=== PATIENT | male | born 1985 | race African-American/Black ===

== ENCOUNTER 2020-03-14 20:05 | Emergency (ER) | payer OTHER, SELFPAY ==
--- NOTE | 2020-03-14 20:56 | RAD ---
SINGLE VIEW OF THE CHEST: 03/14/20 COMPARISON: 08/26/19 HISTORY: Shortness of breath and cough and dizziness for three days. FINDINGS: Single view of the chest shows an enlarged but stable cardiomediastinal silhouette. There is no evide nce of consolidation, mass or pleural effusion. IMPRESSION: No evidence of acute cardiopulmonary disease. POS: EAA
[2020-03-15 11:50] LABS: SARS-CoV-2 MS2 Positive; SARS-CoV-2 N Gene Positive; SARS-CoV-2 S Gene Positive; SARS-CoV-2 orf1ab Positive
== END 2020-03-14 21:45 | disposition home or self-care (01) ==
LOC: ERS 20:05
DX: U07.1 COVID-19 (principal); E11.9 Type 2 diabetes mellitus without complications; I11.0 Hypertensive heart disease with heart failure; I50.9 Heart failure, unspecified; Z79.899 Other long term (current) drug therapy
CPT/HCPCS: 71045; 87635; 93005; U0003

== ENCOUNTER 2020-10-17 01:56 | Inpatient (IN) | payer OTHER, SELFPAY ==
[2020-10-17] MEDS ORDERED: Nitroglycerin 0.4 MG TAB 1 EACH ONE (02:16)
[2020-10-17] MEDS ORDERED: Furosemide 40 MG/4 ML VIAL ONE (03:48)
[2020-10-17] MEDS ORDERED: Labetalol HCl 100 MG/20 ML VIAL ONE (03:48)
[2020-10-17 03:55] LABS: #Eosinphils 0.1 thou/uL (0.0-0.7); #Lymphocytes 1.7 thou/uL (1.20-3.40); #Monocytes 0.8 thou/uL (0.11-0.59); #Neutrophils 5.6 thou/uL (1.40-6.50); %Basophils 0.3 % (0.0-1.0); %Eosinophils 0.9 % (0.0-10.0); %Lymphocytes 20.9 % (21.0-51.0); %Monocytes 9.2 % (0.0-10.0); %Neutrophils 68.7 % (42.0-75.0); Hemoglobin 13.4 g/dL (14.0-18.0); Hypochromia SLIGHT = 6-15 cells (100X) (0-5/hpf); MDiff Complete? YES; Mean Corpuscular HGB CONC 29.8 g/dL (32.0-36.0); Mean Corpuscular Hemoglobin 24.8 pg (27.0-31.0); Mean Corpuscular Volume 83.2 fL (78.0-98.0); Mean Platelet Volume 10.2 fL (7.4-10.4); Platelet Count 183 thou/uL (130-400); Platelet Morphology Comment Appears Adequate; RBC Distribution Width 14.6 % (11.5-14.5); Red Blood Cell (RBC) Count 5.41 mill/uL (4.70-6.10); White Blood Cell (WBC) Count 8.2 thou/uL (4.8-10.8)
[2020-10-17 04:10] LABS: ALT (SGPT) 17 U/L (8-55); AST (SGOT) 17 U/L (5-34); Albumin 3.4 g/dL (3.5-5.0); Alkaline Phosphatase 68 U/L (40-110); Anion Gap 11 mmol/L (10-20); BUN (Urea Nitrogen) 18 mg/dL (8.9-20.6); Bilirubin, Total 0.5 mg/dL (0.2-1.2); Calc. Creatinine Clearance 0 mL/min (70-130); Calcium 8.5 mg/dL (7.8-10.44); Carbon Dioxide 35 mmol/L (22-29); Chloride 98 mmol/L (98-107); Globulin 3.5 g/dL (2.4-3.5); Glucose 120 mg/dL (70-105); Potassium 4.4 mmol/L (3.5-5.1); Protein, Total 6.9 g/dL (6.0-8.3); Sodium 140 mmol/L (136-145)
[2020-10-17 04:32] LABS: CKMB 1.6 ng/mL (0-6.6)
[2020-10-17] MEDS ORDERED: Aspirin 325 MG TAB ONE (04:39)
[2020-10-17 07:28] LABS: Troponin I 0.064 ng/mL (< 0.028)
--- NOTE | 2020-10-17 07:46 | RAD ---
Portable frontal chest radiograph: 10/17/2020 COMPARISON: 03/14/2020 HISTORY: Progressive swelling of the legs and abdomen FINDINGS: The cardiac silhouette is enlarged, similar when compared to the prior exam. There is pulmo nary vascular congestion with no pneumothorax, lobar consolidation, or alveolar edema. IMPRESSION: Enlarged cardiac silhouette with mild pulmonary vascular congestion.
[2020-10-17] MEDS ORDERED: Ondansetron PF 4 MG/2 ML Vial IVP PRN (08:53)
[2020-10-17] MEDS ORDERED: Acetaminophen 650 MG Suppository PR PRN (08:53)
[2020-10-17] MEDS ORDERED: Ondansetron ODT 4 MG TAB PO PRN (08:53)
[2020-10-17] MEDS ORDERED: Furosemide 20 MG/2 ML VIAL SLOW IVP SCH (09:00)
[2020-10-17] MEDS ORDERED: hydrALAZINE 20 MG/ML VIAL SLOW IVP PRN (09:05)
[2020-10-17] MEDS ORDERED: Dextrose 50% Abboject 50 ML SYRINGE SLOW IVP PRN (09:06)
[2020-10-17] MEDS ORDERED: Dextrose 5% in Water 1,000 ML IV PRN (09:06)
[2020-10-17] MEDS ORDERED: HumaLOG 300 UNITS/3 ML VIAL SC PRN (09:06)
--- NOTE | 2020-10-17 09:14 | PDOC.HHP ---
Hospitalist HPI - History of Present Illness SOB History of Present Illness: Mr. Shearer is a 35 year-old male with a PMHx of DM, CHF, HTN, IMELDA, who presents for worsening shortness of breath. Patient reports that over the past few weeks he has noticed increasing swelling in his lower extremities and worsening shortness of breath on exertion. Patient reports that over the past 2 weeks he has found he has had to sit up to sleep at night. He denies any cough upper respiratory symptoms denies fever chills myalgias. No known Covid contacts. Patient does report that he has been compliant with his Lasix, but that he has been at this dose for a few years now. He follows with the [facility], and has not seen a boat outfitter due to insurance issues. He denies chest pain, abdominal pain, nausea vomiting diarrhea. No numbness weakness or paresthesias. Emergency room initial vital signs 225/130, 112, 22, 98.7, 85% on room air. Improved to 165/109, 92, 16, 98.5, 96% on 2 L nasal cannula. Initial troponin 0 0.071. EKG showed sinus tachycardia with flat and nonspecific T waves, no is chemic changes. H/H 13.4/485.0, WBC 8.2, platelets 183. BUN/CR 18/1.87, sodium 140, potassium 4.4, glucose 120. Patient received IV labetalol, aspirin, Lasix and nitro sublingual in the emergency room. Hospitalist ROS - Review of Systems Constitutional: denies: fever, chills, sweats, weakness, malaise, other Eyes: denies: pain, vision change, conjunctivae inflammation, eyelid inflammation, redness, other ENT: denies: ear pain, ear discharge, nose pain, nose discharge, nose con gestion, mouth pain, mouth swelling, throat pain, throat swelling, other Cardiovascular: reports: other (Bilateral lower extremity swelling). denies: chest pain, palpitations, orthopnea, paroxysmal noc. dyspnea, edema, light headedness Gastrointestinal: denies: nausea, vomiting, abdominal pain, diarrhea, constipation, melena, hematochezia, other Genitourinary: denies: dysuria, frequency, incontinence, hematuria, retention, other Musculoskeletal: denies: neck pain, shoulder pain, arm pain, back pain, hand pain, leg pain, foot pain, other Neurological: denies: weakness, numbness, incoordination, change in speech, confusion, seizures, other - Medication Medications: New medications include Carvedilol Lasix Aspirin Unknown diabetes medication No drug allergies Hospitalist History - Past Medical History Other Medical History: Past medical history includes Type 2 diabetes mellitus Congestive heart failure Hypertension Obstructive sleep apnea Morbid obesity - Past Surgical History Other Surgical History: Past surgical history includes Hernia repair as a child - Family History Other Family History: Reports family history of diabetes, hypertension. No known history of cardiac disease in parents. - Social History Smoking Status: Current every day smoker Tobacco Type: cigarettes Alcohol: reports: None Drugs: reports: none Living Situation: With Family Activity level: independent ambulation - Exam General Appearance: NAD, awake alert General - other findings: Morbidly obese Eye: PERRL, anicteric sclera ENT: normocephalic atraumatic, no oropharyngeal lesions, moist mucosa Neck: supple, symmetric, no JVD, no thyromegaly, no lymphadenopathy, no carotid bruit Heart: RRR, no murmur, no gallops, no rubs, normal peripheral pulses Respiratory: normal chest expansion, no tachypnea, normal percussion Respiratory - other findings: Rales with faint expiratory wheezes bilaterally Gastrointestinal: soft, non-tender, non-distended, normal bowel sounds, no palpable masses, no hepatomegaly, no splenomegaly, no bruit, no guarding, no rigidity Extremities: no cyanosis, 2+ LE edema Extremities - other findings: Chronic venous stasis changes to bilateral lower extremities Skin: normal turgor, no lesions, no rashes Neurological: cranial nerve grossly intact, normal sensation to touch, no weakness, no focal deficits, no new deficit Musculoskeletal: normal tone, normal strength, no muscle wasting Psychiatric: normal affect, normal behavior, A&O x 3 Hospitalist Results - Labs Result Diagrams: 10/17/20 03:37 10/17/20 03:37 Lab results: WBC 8.2 thou/uL (4.8-10.8) 10/17/20 03:37 Hgb 13.4 g/dL (14.0-18.0) L 10/17/20 03:37 Hct 45.0 % (42.0-52.0) 10/17/20 03:37 MCV 83.2 fL (78.0-98.0) 10/17/20 03:37 Plt Count 183 thou/uL (130-400) 10/17/20 03:37 Neutrophils % 68.7 % (42.0-75.0) 10/17/20 03:37 Sodium 140 mmol/L (136-145) 10/17/20 03:37 Potassium 4.4 mmol/L (3.5-5.1) 10/17/20 03:37 Chloride 98 mmol/L (98-107) 10/17/20 03:37 Carbon Dioxide 35 mmol/L (22-29) H 10/17/20 03:37 BUN 18 mg/dL (8.9-20.6) 10/17/20 03:37 Creatinine 1.87 mg/dL (0.7-1.3) H 10/17/20 03:37 Glucose 120 mg/dL (70-105) H 10/17/20 03:37 Calcium 8.5 mg/dL (7.8-10.44) 10/17/20 03:37 Total Bilirubin 0.5 mg/dL (0.2-1.2) 10/17/20 03:37 AST 17 U/L (5-34) 10/17/20 03:37 ALT 17 U/L (8-55) 10/17/20 03:37 Alkaline Phosphatase 68 U/L (40-110) 10/17/20 03:37 CK-MB (CK-2) 1.6 ng/mL (0-6.6) 10/17/20 03:37 Troponin I 0.064 ng/mL (< 0.028) H 10/17/20 06:54 B-Natriuretic Peptide 291.8 pg/mL (0-100) H 10/17/20 03:37 Serum Total Protein 6.9 g/dL (6.0-8.3) 10/17/20 03:37 Albumin 3.4 g/dL (3.5-5.0) L 10/17/20 03:37 Hospitalist H&P A/P - Plan Plan: Acute on chronic CHF exacerbation 35-year-old male with past medical history of CHF, morbid obesity, diabetes, hypertension, sleep apnea presents with worsening shortness of breath found to be in acute CHF exacerbation. BNP 291.8, troponin 0 0.071. Denies chest pain. Chest x-ray with significant vascular congestion and significant cardiomegaly. Patient's blood pressure is significantly elevated with hypertensive emergency 2-20 60. Patient requiring 2 L nasal cannula to maintain O2 saturation. WBC 8.2, Covid pending. Patient received Lasix, nitro in emergency room. Plan IV Lasix 40 mg twice daily Continue home beta-erum Supplemental oxygen. Echocardiogram I/O, daily weights Heart failure consult Hypertensive emergency Patient presented with BP 225/130. Patient with hypertensive emergency in setting of acute on chronic CHF exacerbation. Blood pressure improved with IV labetalol. We will continue diuresing patient as well as making as needed blood pressure medications available. Will be careful to ensure patient's blood pres sure is not decreased too quickly. Plan IV labetalol as needed Continue home carvedilol Trend and treat blood pressures as needed Elevation in troponin Troponin elevated to 0.071. EKG with sinus tachycardia and flattened nonspecific T waves. Patient denies chest pain likely elevated secondary to CHF exacerbation. We will continue to trend and monitor. Plan Trend troponin Telemetry monitoring ASA Lipid panel, hemoglobin A1c Acute kidney injury Patient with acute kidney injury BUN/CR 18/1.87. Unaware of patient's baseline creatinine. May be component of cardiorenal syndrome. We will continue to diurese patient and trend kidney function. Plan Diuresis as above Trend kidney function Avoid nephrotoxic agents were possible Renal dosing as appropriate Type 2 diabetes mellitus History of type 2 diabetes mellitus on some type of oral medication although patient unsure as to which one. Blood glucose [address] on ISS and [facility] glucose checks. Will continue home medications once confirmed. Plan ISS Carb consistent diet Hemoglobin A1c [facility] glucose checks Hypertension History of hypertension on Lasix and carvedilol at home. Please see plan as a arturo. Obstructive sleep apnea History of obstructive sleep apnea. Will make CPAP available at night. Patient currently requiring 2 L nasal cannula to maintain O2 saturation. DVT prophylaxisSQ heparin Full code Case discussed with attending physician, Dr. Castellanos.
[2020-10-17 10:08] LABS: Hemoglobin A1c 8.1 % (4.0-6.0)
[2020-10-17] MEDS ORDERED: Prevnar 13-Val Conj/PF 0.5 ML SYRINGE IM ONE (10:15)
[2020-10-17] MEDS ORDERED: FLU VACC QS2020-21(6MOS UP)/PF 60 MCG/0.5 ML SYRINGE IM ONE (10:15)
[2020-10-17 10:22] LABS: Calcium 8.4 mg/dL (7.8-10.44); Cardiac Risk 3.2 (Less than 4.5); Magnesium 1.3 mg/dL (1.6-2.6)
[2020-10-17] MEDS: Heparin 5,000 UNITS/ML VIAL SC SCH ×3 (10:25→21:04)
[2020-10-17 10:26] LABS: Troponin I 0.057 ng/mL (< 0.028)
--- NOTE | 2020-10-17 10:26 | HP ---
PRESENTING COMPLAINT: Worsening swelling of the feet and shortness of breath. HISTORY OF PRESENT ILLNESS: The patient with past medical history of diabetes mellitus, hypertension, hypercholesteremia, chronic kidney disease, unknown stage, chronic diastolic congestive heart failure, history of COVID-19 pneumonia, morbid obesity, presented with worsening swelling of the feet. As per patient from last 2 weeks, he has been noncompliant with his medication. Also been complaining of worsening swelling of the feet and abdominal swelling and due to worsening complaints, he decided to come to the emergency room. The patient had also been complaining of worsening shortness of breath, but as per patient, it is mostly on exertion. Denies any chest pain, nausea, vomiting, diarrhea, abdominal pain, urinary complaints, joint pains, rash. Initial workup in the emergency room showed bilateral chest x-ray congestions. High proBNP 291. Positive troponin 0.071, 0.064 and hypertensive urgency with blood pressure high. The patient given labetalol and being admitted for further evaluation. REVIEW OF SYSTEMS: As mentioned above in the HPI. All other systems are negative. PAST MEDICAL HISTORY: As mentioned above in the HPI. PAST SURGICAL HISTORY: History of hernia surgery. SOCIAL HISTORY: The patient denies smoking. However, as per patient, he has been passively smoking. Denies alcohol abuse, drug abuse. ALLERGIES: NKDA. FAMILY HISTORY: Reviewed and noncontributory. HOME MEDICATIONS: 1. Aspirin. 2. Furosemide. 3. Coreg. PHYSICAL EXAMINATION: GENERAL: The patient is morbidly obese, lying in bed comfortably, not in distress. HEENT: Conjunctivae normal. Oral mucosa moist. NECK: Supple. No JVD. No lymphadenopathy. CHEST: Decreased air entry in bilateral low lung vaca. HEART: Sounds normal. No murmur. No gallop. No rub. ABDOMEN: Soft. No rebound or guarding. Bilateral edema of feet positive. No rash. No cyanosis. . Job ID: [id number] [facility]
[2020-10-17] MEDS: Furosemide 40 MG/4 ML VIAL SLOW IVP SCH (15:04)
[2020-10-17] MEDS: HumaLOG 300 UNITS/3 ML VIAL SC PRN (15:59)
--- NOTE | 2020-10-17 17:08 | CON ---
DATE OF CONSULTATION: HISTORY OF PRESENT ILLNESS: Cesar Shearer is a 35-year-old black male with history of obstructive sleep apnea and diastolic heart failure. He was hospitalized here in September 2013 with congestive heart failure and at that time, found to have an ejection fraction of 20% to 25% and was placed on carvedilol, Lasix, and Zaroxolyn. He was then [facility] by [facility]. He was admitted again in June 2017 after running out of his medications. Subsequent echos have showed ejection fraction of 50% to 55%. Most recent echo was in August 2019, which showed ejection fraction of 50% to 55%. He also has history of COVID pneumonia. Over the last 2 weeks, he has been noncompliant with his medication and has had worsening shortness of breath, leg, and abdominal swelling. He denies any chest discomfort, diarrhea, or fever. PAST MEDICAL HISTORY: Nonischemic cardiomyopathy with ejection fraction 20% to 25% in September 2013, however, his ejection fraction improved to normal; hypertension; morbid obesity; noncompliance; obstructive sleep apnea. OPERATIONS: Orchiopexy for undescended left testicle, inguinal hernia repair, and circumcision. MEDICATIONS: 1. Aspirin 81 daily. 2. Carvedilol 25 mg daily. 3. Furosemide 40 b.i.d. 4. Magnesium oxide 400 mg daily. ALLERGIES: NONE. SOCIAL HISTORY: He does not smoke. He occasionally drinks. 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 FAMILY HISTORY: Negative. PHYSICAL EXAMINATION: VITAL SIGNS: Blood pressure 175/97, pulse of 97. HEENT: PERRL. NECK: Supple. CHEST: Clear. CARDIAC: S1 and S2 normal without any S3, S4, or murmurs. ABDOMEN: Morbidly obese with abdominal swelling. EXTREMITIES: Reveal 2+ pretibial edema. NEUROLOGIC: Grossly intact. LABORATORY DATA: EKG reveals sinus tachycardia, possible left atrial enlargement, right axis deviation, poor R-wave progression. Hemoglobin 13.4, hematocrit 45.0, white count 8200, platelets 183,000. Cholesterol 95, triglycerides 82, HDL 30, LDL 49. TSH is normal. Troponin I is 0.071. Sodium 140, potassium 4.4, chloride 98, carbon dioxide 35, BUN 18, creatinine 1.87. BNP 291.8. IMPRESSION: 1. Noncompliance with medications. 2. Xmlow-sl-dlnwgwu diastolic heart failure. His last ejection fraction was in August 2019 and his ejection fraction was 50% to 55%. 3. History of dilated cardiomyopathy with ejection fraction of 20% to 25% in September 2013; however, this has improved. 4. Non-ST elevation myocardial infarction type 2. He has had chronically elevated troponin I over the years. 5. Hypertension, poorly controlled. 6. Chronic kidney disease. PLAN: The patient continue to be diuresed. Carvedilol will be increased to 25 mg b.i.d., which is the usual dosing. Attempt will be made to try to combine this admission with his multiple previous admissions for adequate care of this patient. Job ID: [id number] [facility]
[2020-10-17] MEDS: Acetaminophen 325 MG TAB PO PRN (18:38)
[2020-10-17 18:59] LABS: SARS-CoV-2 PCR by NAA Not Detected (NotDetected)
[2020-10-17] MEDS ORDERED: Aspirin 81 mg Enteric Coated Tablet PO SCH (21:00)
[2020-10-17] MEDS: Carvedilol 25 MG TAB PO SCH (21:04)
[2020-10-17] MEDS ORDERED: Lorazepam 2 MG/ML VIAL SLOW IVP PRN (21:35)
[2020-10-18] MEDS: Furosemide 40 MG/4 ML VIAL SLOW IVP SCH ×2 (05:53→14:05)
[2020-10-18 06:01] LABS: Hemoglobin 13.2 g/dL (14.0-18.0); Mean Corpuscular Hemoglobin 24.1 pg (27.0-31.0); Mean Corpuscular Volume 85.2 fL (78.0-98.0); Red Blood Cell (RBC) Count 5.48 mill/uL (4.70-6.10); White Blood Cell (WBC) Count 8.8 thou/uL (4.8-10.8)
[2020-10-18 06:02] LABS: #Lymphocytes 1.1 thou/uL (1.20-3.40); #Monocytes 1.1 thou/uL (0.11-0.59); #Neutrophils 6.5 thou/uL (1.40-6.50); %Basophils 0.4 % (0.0-1.0); %Eosinophils 0.4 % (0.0-10.0); %Lymphocytes 12.8 % (21.0-51.0); %Monocytes 12.1 % (0.0-10.0); %Neutrophils 74.2 % (42.0-75.0); Mean Corpuscular HGB CONC 28.2 g/dL (32.0-36.0); Mean Platelet Volume 10.3 fL (7.4-10.4); Platelet Count 193 thou/uL (130-400); RBC Distribution Width 14.4 % (11.5-14.5)
[2020-10-18 06:20] LABS: Anion Gap 10 mmol/L (10-20); BUN (Urea Nitrogen) 20 mg/dL (8.9-20.6); Calc. Creatinine Clearance 156 mL/min (70-130); Calcium 8.4 mg/dL (7.8-10.44); Carbon Dioxide 37 mmol/L (22-29); Chloride 96 mmol/L (98-107); Glucose 153 mg/dL (70-105); Potassium 5.3 mmol/L (3.5-5.1); Sodium 138 mmol/L (136-145)
[2020-10-18] MEDS ORDERED: Sodium Chloride For Inhalation 0.9% 3 ML NEB ONE (07:38)
[2020-10-18] MEDS ORDERED: Carvedilol 25 MG TAB PO SCH (09:00)
[2020-10-18] MEDS: Heparin 5,000 UNITS/ML VIAL SC SCH ×3 (09:34→20:29)
[2020-10-18] MEDS: Aspirin Chewable 81 MG TAB PO SCH (09:34)
[2020-10-18] MEDS: Carvedilol 25 MG TAB PO SCH ×2 (09:34→20:28)
--- NOTE | 2020-10-18 11:15 | PDOC.HOSPP ---
- Subjective Encounter Date: 10/18/20 Encounter Time: 11:12 Subjective: No overnight events. Patient reports mild improvement in his breathing, but still requiring 2L NC. Denies chest pain, palpitations, or abdominal pain. Chart and medications reviewed. - Objective Vital Signs & Weight: Vital Signs (12 hours) Temp Pulse Resp BP BP Pulse Ox 10/18/20 07:51 98.7 F 87 19 135/66 96 10/18/20 04:00 98.3 F 94 20 117/58 L 97 10/18/20 01:55 98 10/18/20 00:05 93 20 134/84 100 10/18/20 00:00 100 Weight Weight 464 lb 4.8 oz I&O: 10/17/20 10/18/20 10/19/20 06:59 06:59 06:59 Intake Total 720 240 Output Total 4600 375 Balance -3880 -135 Result Diagrams: 10/21/20 13:46 10/21/20 13:46 Additional Labs: Accuchecks 10/17/20 10/17/20 21:46 15:54 POC Glucose 157 H 158 H Hospitalist ROS - Review of Systems Constitutional: denies: fever, chills, sweats, weakness, malaise, other Eyes: denies: pain, vision change, conjunctivae inflammation, eyelid inflammation, redness, other ENT: denies: ear pain, ear discharge, nose pain, nose discharge, nose congestion, mouth pain, mouth swelling, throat pain, throat swelling, other Respiratory: reports: shortness of breath, SOB with excertion. denies: cough, dry, hemoptysis, pleuritic pain, sputum, wheezing, other Cardiovascular: denies: chest pain, palpitations, orthopnea, paroxysmal noc. dyspnea, edema, light headedness, other Gastrointestinal: denies: nausea, vomiting, abdominal pain, diarrhea, constipation, melena, hematochezia, other Genitourinary: denies: dysuria, frequency, incontinence, hematuria, retention, other Musculoskeletal: denies: neck pain, shoulder pain, arm pain, back pain, hand pain, leg pain, foot pain, other Skin: denies: rash, lesions, lissette, bruising, other Neurological: denies: weakness, numbness, incoordination, change in speech, confusion, seizures, other - Medication Medications: Active Medications Generic Name Dose Route Start Last Admin Trade Name Freq PRN Reason Stop Dose Admin Acetaminophen 650 mg 10/17/20 08:53 10/17/20 18:38 Acetaminophen 325 Mg Tab PO 650 mg Q4H PRN Administration Headache/Fever/Mild Pain (1-3) Aspirin 81 mg 10/18/20 09:00 10/18/20 09:34 Aspirin Chewable 81 Mg Tab PO 81 mg DAILY BRANDT Administration Carvedilol 25 mg 10/17/20 21:00 10/18/20 09:34 Carvedilol 25 Mg Tab PO 25 mg BID BRANDT Administration Furosemide 40 mg 10/17/20 14:00 10/18/20 05:53 Furosemide 40 Mg/4 Ml Vial SLOW IVP 40 mg 0600,1400 BRANDT Administration Heparin Sodium (Porcine) 5,000 units 10/17/20 09:00 10/18/20 09:34 Heparin 5,000 Units/Ml Vial SC 5,000 units TID BRANDT Administration Hydralazine HCl 10 mg 10/17/20 09:05 10/17/20 15:45 Hydralazine 20 Mg/Ml Vial SLOW IVP 10 mg Q4H PRN Administration SBP Greater Than 170 Insulin Human Lispro 0 units 10/17/20 09:06 10/17/20 15:59 Humalog 300 Units/3 Ml Vial SC 2 unit .MILD SLIDING SCALE PRN Administration Mild Correctional Scale Sodium Chloride 10 ml 10/17/20 08:53 10/18/20 09:34 Flush - Normal Saline 10 Ml Syringe IVF 10 ml PRN PRN Administration Saline Flush Hospitalist Exam General Appearance: NAD, awake alert General - other findings: No respiratory distress on 2L NC Eye: PERRL, anicteric sclera ENT: normocephalic atraumatic, no oropharyngeal lesions, moist mucosa Neck: supple, symmetric, no JVD, no thyromegaly, no lymphadenopathy, no carotid bruit, JVD Heart: RRR, no murmur, no gallops, no rubs, normal peripheral pulses Respiratory: no tachypnea Respiratory - other findings: rales at bilateral bases, chest expansion limited by obesity Gastrointestinal: soft, non-tender, non-distended, normal bowel sounds, no palpable masses, no hepatomegaly, no splenomegaly, no bruit Extremities: 2+ LE edema Skin: normal turgor, no lesions, no rashes Neurological: normal sensation to touch, no weakness, no focal deficits Musculoskeletal: normal tone, normal strength, no muscle wasting Psychiatric: normal affect, normal behavior, A&O x 3 Hosp A/P - Plan Acute on chronic CHF exacerbation 35-year-old male with past medical history of CHF, morbid obesity, diabetes, hypertension, sleep apnea presents with worsening shortness of breath found to be in acute CHF exacerbation. BNP 291.8, troponin 0 0.071. Denies chest pain. Chest x-ray with significant vascular congestion and significant cardiomegaly. Patient's blood pressure is significantly elevated with hypertensive emergency 220 5/60. Patient requiring 2 L nasal cannula to maintain O2 saturation. WBC 8.2, Covid negative. Cardiolgoy consulted, increased home carvediol, continuing diuresis. Output of approx 3 L overnight. Will continue current lasix dose. Patient reports mild improvement in SOB. Still using 2L NC. Plan IV Lasix 40 mg twice daily Continue home beta-erum Supplemental oxygen. Echocardiogram pending I/O, daily weights Cardiology following Hypertensive emergency Patient presented with BP 225/130. Patient with hypertensive emergency in setting of acute on chronic CHF exacerbation. Blood pressure improved with IV labetalol. We will continue diuresing patient as well as making as needed blood pressure medications available. Will be careful to ensure patient's blood pressure is not decreased too quickly. Plan IV labetalol as needed Continue home carvedilol Trend and treat blood pressures as needed Type 2 NSTEMI Troponin elevated to 0.071. EKG with sinus tachycardia and flattened nonspecific T waves. Patient denies chest pain likely elevated secondary to CHF exacerbation. We will continue to trend and monitor. Plan Trend troponin Telemetry monitoring ASA Lipid panel, hemoglobin A1c Acute kidney injury Patient with acute kidney injury BUN/CR 18/1.87. Unaware of patient's baseline creatinine. May be component of cardiorenal syndrome vs overdiuresis. Slightly increased today to 2.0. Patient still fluid overloaded on exam with SOB in AECHF. Will consult nephrology. Plan Diuresis as above Trend kidney function, UA with microscopic Avoid nephrotoxic agents were possible Renal dosing as appropriate -Renal consult, recommendations appreciated Hyperkalemia K mildly elevated to 5.3 on 10/18. No EKG changes. Is receiving lasix. Will check STAT repeat to ensure no lab error/hemolyzed sample and treat as indicated. Nephrology consulted for ZAHIDA as above as well. Plan -STAT repeat K -Trend Hypomagnesemia Magnesium low at 1.3. Will replete and continue to monitor. Obesity hypoventilation syndrome Patient with morbid obesity. BMI 65. Chest expansion limited. Likely contributing to patient's O2 requirement. Plan -Cont. supplemental O2 as needed -Outpatient f/u with PCP for weight management Type 2 diabetes mellitus History of type 2 diabetes mellitus on some type of oral medication although patient unsure as to which one. Blood glucose [address] on ISS and [facility] glucose checks. Will continue home medications once confirmed. Plan ISS Carb consistent diet Hemoglobin A1c [facility] glucose checks Hypertension History of hypertension on Lasix and carvedilol at home. Please see plan as above. Obstructive sleep apnea History of obstructive sleep apnea. Will make CPAP available at night. Patient currently requiring 2 L nasal cannula to maintain O2 saturation. DVT prophylaxisSQ heparin Full code Case discussed with attending physician, Dr. Han.
[2020-10-18 11:27] LABS: BUN (Urea Nitrogen) 20 mg/dL (8.9-20.6); Calc. Creatinine Clearance 146 mL/min (70-130); Calcium 8.1 mg/dL (7.8-10.44); Glucose 153 mg/dL (70-105)
[2020-10-18 11:36] LABS: Anion Gap 17 mmol/L (10-20); Carbon Dioxide 35 mmol/L (22-29); Chloride 96 mmol/L (98-107); Potassium 5.2 mmol/L (3.5-5.1); Sodium 143 mmol/L (136-145)
[2020-10-18] MEDS ORDERED: Calcium Gluconate 4.6 MEQ in Sodium Chloride 0.9% 100 ML IVPB SCH (12:58)
[2020-10-18] MEDS ORDERED: Magnesium 2 GM/50 ML 2 GM in Premix Bag 1 BAG IVPB SCH (13:00)
[2020-10-18] MEDS: HumaLOG 300 UNITS/3 ML VIAL SC PRN ×2 (13:11→16:37)
[2020-10-18 17:21] LABS: Bilirubin Negative (Negative); Blood, Urine Negative (Negative); Glucose, Urine (Dipstick) Normal (Negative); Ketone, Urine Negative (Negative); Leukocyte Negative Leu/uL (Negative); Nitrite Negative (Negative); Protein, Urine (Dipstick) 200 mg/dL (Neg-Trace); RBC/HPF 0-3 HPF (0-3); Specific Gravity, Urine 1.015 (1.002-1.036); Squamous Epithelial 0-3 HPF (0-3); Urobilinogen Normal mg/dL (Less than 2); pH, Urine 5.5 (5.0-9.0)
--- NOTE | 2020-10-18 17:23 | CON ---
DATE OF CONSULTATION: 10/18/2020 CONSULTING PHYSICIAN: Eliana Obrien PA-C REASON FOR CONSULTATION: Acute kidney injury. REASON FOR ADMISSION: Worsening swelling and shortness of breath. HISTORY OF PRESENT ILLNESS: This is a 35-year-old male with history of hypertension, hyperlipidemia, chronic kidney disease, CHF, history of COVID-19 pneumonia, came to the hospital with worsening shortness of breath and is being evaluated for CHF exacerbation and was on diuretics, but this morning, his creatinine kept on rising, it was 2.15 from a baseline of around 1.87. Nephrology consulted. The patient denies any symptoms, was little sleepy this morning. His fiancee was at the bedside. Denies any nausea or vomiting. No chest pain. No fever or chills. No skin rash. PAST MEDICAL HISTORY: Positive for morbid obesity, type 2 diabetes, hypertension, hyperlipidemia, chronic kidney disease, and CHF. PAST SURGICAL HISTORY: Hernia surgery. HOME MEDICATIONS: Reviewed. ALLERGIES: NO KNOWN DRUG ALLERGIES. SOCIAL HISTORY: No smoking, alcohol, or illicit drug abuse. FAMILY HISTORY: No history of kidney disease. REVIEW OF SYSTEMS: CONSTITUTIONAL: Negative for weight loss or gain, ability to conduct usual activities. SKIN: Negative for rash, itching. EYES: Negative for double vision, pain. ENT/MOUTH: Negative for nose bleeding, neck stiffness, pain, tenderness. CARDIOVASCULAR: Negative for palpitations, dyspnea on exertion, orthopnea. RESPIRATORY: Negative for shortness of breath, wheezing, cough, hemoptysis, fever or night sweats. GASTROINTESTINAL: Negative for poor appetite, abdominal pain, heartburn, nausea, vomiting, constipation, or diarrhea. GENITOURINARY: Negative for urgency, frequency, dysuria, nocturia. MUSCULOSKELETAL: Negative for pain, swelling. NEUROLOGIC/PSYCHIATRIC: Negative for anxiety, depression. ALLERGY/IMMUNOLOGIC: Negative for skin rash, bleeding tendency. PHYSICAL EXAMINATION: GENERAL: Morbidly obese male, in no apparent distress. VITAL SIGNS: Temperature 99, pulse 78, respiratory rate 18, and blood pressure 138/92. HEENT: Atraumatic, normocephalic. Oral mucosa is moist. NECK: Supple. CV: S1 and S2. Rate and rhythm regular. RESPIRATORY: Clear. GASTROINTESTINAL: Abdomen is soft. MUSCULOSKELETAL: 1 to 2+ edema. DERMATOLOGIC: No skin rash. NEUROLOGICAL: Alert and awake. PSYCHIATRIC: Mood and affect normal. LABORATORY DATA: Hemoglobin is 13.2. Potassium 5.2, BUN is 20, and creatinine is 2.1. ASSESSMENT AND PLAN: 1. Acute kidney injury on chronic kidney disease, stage 3, most likely from cardiorenal syndrome. Recommend cautious use of diuretics with close monitoring of labs and electrolytes and cardiorespiratory status. 2. Hyperkalemia. Limit potassium intake. 3. Alkalosis secondary to diuretics. 4. Morbid obesity. 5. Hyperglycemia with type 2 diabetes. 6. History of remote COVID-19 infection. 7. Morbid obesity. 8. Mild hypoalbuminemia. Continue optimization of cardiac medications and cautious use of diuretics. We will continue to follow. Job ID: [id number]
[2020-10-18 17:30] LABS: Bacteria/HPF Rare-Few HPF (None Seen)
[2020-10-18 17:31] LABS: Clarity Hazy (Clear); Urine Culture Reflex Yes Yes
--- NOTE | 2020-10-18 18:12 | PDOC.BPN ---
- Brief Progress Note Encounter Date: 10/18/20 Encounter Time: 18:10 I went to check on patient per PERFORMANCE MANAGEMENT CONSULTANT request because he has been drowsy all day. Patient was up, awake and alert, just finished eating his dinner when I saw him. He apparently refused arterial blood gas. Clinically stable at the moment. Continue BiPAP during sleep. Wean oxygen to keep SaO2 between 90 to 92%.
[2020-10-18 21:11] LABS: Anion Gap 22 mmol/L (10-20); BUN (Urea Nitrogen) 24 mg/dL (8.9-20.6); Calc. Creatinine Clearance 115 mL/min (70-130); Calcium 8.1 mg/dL (7.8-10.44); Carbon Dioxide 23 mmol/L (22-29); Chloride 99 mmol/L (98-107); Glucose 128 mg/dL (70-105); Sodium 137 mmol/L (136-145)
[2020-10-18 21:20] LABS: Potassium 6.7 mmol/L (3.5-5.1)
--- NOTE | 2020-10-18 21:43 | PDOC.EVN ---
Event Note - Event Note Event Note: Nathan stiles, critical lab K 6.7. Give calcium gluconate, Insulin R, amp D50, and kayexalate. Already on lasix. EKG. Will repeat bmp in 4 hours.
[2020-10-18] MEDS ORDERED: Calcium Gluc 4.6 MEQ/10 ML (100 MG/ML) SLOW IVP SCH (22:00)
[2020-10-18] MEDS ORDERED: Dextrose 50% Abboject 50 ML SYRINGE SLOW IVP SCH (22:00)
[2020-10-18] MEDS ORDERED: Insulin Regular 300 UNITS/3 ML VIAL IVP SCH (22:00)
[2020-10-19 01:59] LABS: Anion Gap 13 mmol/L (10-20); BUN (Urea Nitrogen) 24 mg/dL (8.9-20.6); Calc. Creatinine Clearance 140 mL/min (70-130); Calcium 8.4 mg/dL (7.8-10.44); Carbon Dioxide 34 mmol/L (22-29); Chloride 96 mmol/L (98-107); Glucose 103 mg/dL (70-105); Potassium 4.7 mmol/L (3.5-5.1); Sodium 138 mmol/L (136-145)
[2020-10-19 06:04] LABS: Hemoglobin 13.1 g/dL (14.0-18.0); Mean Corpuscular HGB CONC 28.7 g/dL (32.0-36.0); Mean Corpuscular Hemoglobin 24.5 pg (27.0-31.0); Mean Corpuscular Volume 85.4 fL (78.0-98.0); Mean Platelet Volume 10.6 fL (7.4-10.4); Platelet Count 176 thou/uL (130-400); RBC Distribution Width 14.3 % (11.5-14.5); Red Blood Cell (RBC) Count 5.35 mill/uL (4.70-6.10); White Blood Cell (WBC) Count 7.8 thou/uL (4.8-10.8)
[2020-10-19 06:05] LABS: Band 2 % (5-11); Eosinophils 2 % (0-10); Lymphocytes 21 % (21-51); MDiff Complete? YES; Metamyelocyte 1 % (0-0); Monocytes 16 % (0-10); Neutrophil 58 % (42-75); Platelet Morphology Comment Appears Adequate
[2020-10-19] MEDS: Furosemide 40 MG/4 ML VIAL SLOW IVP SCH (06:09)
[2020-10-19 06:10] LABS: Anion Gap 12 mmol/L (10-20); BUN (Urea Nitrogen) 24 mg/dL (8.9-20.6); Calc. Creatinine Clearance 146 mL/min (70-130); Calcium 8.3 mg/dL (7.8-10.44); Carbon Dioxide 35 mmol/L (22-29); Chloride 95 mmol/L (98-107); Glucose 129 mg/dL (70-105); Potassium 4.9 mmol/L (3.5-5.1); Sodium 137 mmol/L (136-145)
--- NOTE | 2020-10-19 07:38 | PDOC.HOSPP ---
- Subjective Encounter Date: 10/19/20 Encounter Time: 07:36 Subjective: " i feel better, can i go home?' - Objective Vital Signs & Weight: Vital Signs (12 hours) Temp Pulse Resp BP Pulse Ox 10/19/20 04:56 94 L 10/19/20 04:17 134/93 H 10/19/20 03:33 97.1 F L 86 19 197/111 H 10/18/20 23:15 98.8 F 90 22 H 112/72 100 10/18/20 19:58 98.3 F 94 21 H 115/82 92 L Weight Weight 471 lb 6.4 oz I&O: 10/18/20 10/19/20 10/20/20 06:59 06:59 06:59 Intake Total 720 1360 Output Total 4600 725 Balance -3880 635 Result Diagrams: 10/19/20 04:50 10/19/20 04:50 Additional Labs: Accuchecks 10/18/20 10/18/20 10/18/20 19:59 16:17 11:37 POC Glucose 123 H 176 H 228 H Hospitalist ROS - Medication Medications: Active Medications Generic Name Dose Route Start Last Admin Trade Name Freq PRN Reason Stop Dose Admin Acetaminophen 650 mg 10/17/20 08:53 10/17/20 18:38 Acetaminophen 325 Mg Tab PO 650 mg Q4H PRN Administration Headache/Fever/Mild Pain (1-3) Aspirin 81 mg 10/18/20 09:00 10/18/20 09:34 Aspirin Chewable 81 Mg Tab PO 81 mg DAILY BRANDT Administration Carvedilol 25 mg 10/17/20 21:00 10/18/20 20:28 Carvedilol 25 Mg Tab PO 25 mg BID BRANDT Administration Heparin Sodium (Porcine) 5,000 units 10/17/20 09:00 10/18/20 20:29 Heparin 5,000 Units/Ml Vial SC 5,000 units TID BRANDT Administration Hydralazine HCl 10 mg 10/17/20 09:05 10/17/20 15:45 Hydralazine 20 Mg/Ml Vial SLOW IVP 10 mg Q4H PRN Administration SBP Greater Than 170 Insulin Human Lispro 0 units 10/17/20 09:06 10/18/20 16:37 Humalog 300 Units/3 Ml Vial SC 2 unit .MILD SLIDING SCALE PRN Administration Mild Correctional Scale Sodium Chloride 10 ml 10/17/20 08:53 10/18/20 09:34 Flush - Normal Saline 10 Ml Syringe IVF 10 ml PRN PRN Administration Saline Flush - Exam General Appearance: awake alert General - other findings: morbid obesity Neck: no JVD Heart: RRR, no murmur Respiratory - other findings: distant BS, no focal findings Gastrointestinal: soft Extremities - other findings: 3+ edema Hosp A/P (1) Acute systolic HF (heart failure) Code(s): I50.21 - ACUTE SYSTOLIC (CONGESTIVE) HEART FAILURE Status: Acute (2) Cardiomyopathy Code(s): I42.9 - CARDIOMYOPATHY, UNSPECIFIED Status: Acute Qualifiers: Cardiomyopathy type: unspecified Qualified Code(s): I42.9 - Cardiomyopathy, unspecified (3) HTN (hypertension) Code(s): I10 - ESSENTIAL (PRIMARY) HYPERTENSION Status: Chronic Qualifiers: Hypertension type: essential hypertension Qualified Code(s): I10 - Essential (primary) hypertension (4) DM type 2 causing CKD stage 3 Code(s): E11.22 - TYPE 2 DIABETES MELLITUS W DIABETIC CHRONIC KIDNEY DISEASE; N1 8.30 - CHRONIC KIDNEY DISEASE, STAGE 3 UNSPECIFIED Status: Acute Qualifiers: Diabetes mellitus penitentiary insulin use: without penitentiary use Chronic kidney disease stage 3 subtype: stage 3b (GFR 30-44) Qualified Code(s): E11.22 - Type 2 diabetes mellitus with diabetic chronic kidney disease; N18.32 - Chronic kidney disease, stage 3b (5) IMELDA (obstructive sleep apnea) Code(s): G47.33 - OBSTRUCTIVE SLEEP APNEA (ADULT) (PEDIATRIC) Status: Chronic (6) Acute and chronic respiratory failure with hypoxia Code(s): J96.21 - ACUTE AND CHRONIC RESPIRATORY FAILURE WITH HYPOXIA Status: Acute (7) Elevated troponin Code(s): R77.8 - OTHER SPECIFIED ABNORMALITIES OF PLASMA PROTEINS Status: Acute - Plan cont iv diuris, escalate lasix to 80mg q12hs add imdu. po apressoline discuss with cardiology
[2020-10-19] MEDS: hydrALAZINE 25 MG TAB PO SCH ×2 (09:32→20:49)
[2020-10-19] MEDS: Carvedilol 25 MG TAB PO SCH ×2 (09:32→20:49)
[2020-10-19] MEDS: Aspirin Chewable 81 MG TAB PO SCH (09:32)
[2020-10-19] MEDS: Heparin 5,000 UNITS/ML VIAL SC SCH ×3 (09:33→20:49)
[2020-10-19] MEDS: Acetaminophen 325 MG TAB PO PRN (09:36)
[2020-10-19] MEDS: HumaLOG 300 UNITS/3 ML VIAL SC PRN (11:47)
[2020-10-19] MEDS: Furosemide 100 MG/10 ML VIAL SLOW IVP SCH (15:11)
--- NOTE | 2020-10-19 18:58 | PRG ---
DATE OF SERVICE: 10/19/2020 SUBJECTIVE: A 35-year-old male, being seen for acute kidney injury. Patient denied nausea, vomiting, or chest pain. PHYSICAL EXAMINATION: GENERAL: The patient is awake and alert. VITAL SIGNS: Afebrile, pulse 85, breathing at 16, blood pressure 115/61. HEENT: Head normocephalic and atraumatic. Eyes intact, no ulcers. Nose intact, no ulcers. Ears intact, no ulcers. NECK: Supple. No JVD. CHEST: Symmetrical and clear. CARDIOVASCULAR: Shows S1 and S2, no rub, no murmur. GASTROINTESTINAL: Abdomen is soft, bowel sounds positive. EXTREMITIES: Show no edema or ulcers. SKIN: Shows no rash or petechiae. MUSCULOSKELETAL: Shows no joint swelling or stiffness. GENITOURINARY: Shows no Hudson or CVA tenderness. NEUROLOGIC: Motor intact. Cranial nerves intact. LABORATORY DATA: Hemoglobin 13.1, creatinine 2. ASSESSMENT AND PLAN: 1. Acute kidney injury. 2. Hypertension, stable. 3. Anemia, stable. 4. Hyperkalemia, improved. 5. Elevated bicarbonate. Recommend checking a blood gas to evaluate acid-base disorders. Job ID: [id number]
[2020-10-20] MEDS: Furosemide 100 MG/10 ML VIAL SLOW IVP SCH ×2 (06:16→13:26)
[2020-10-20 07:12] LABS: #Eosinphils 0.1 thou/uL (0.0-0.7); #Lymphocytes 1.4 thou/uL (1.20-3.40); #Monocytes 1.1 thou/uL (0.11-0.59); #Neutrophils 5.5 thou/uL (1.40-6.50); %Basophils 0.5 % (0.0-1.0); %Eosinophils 0.6 % (0.0-10.0); %Lymphocytes 17.1 % (21.0-51.0); %Monocytes 13.1 % (0.0-10.0); %Neutrophils 68.6 % (42.0-75.0); Hemoglobin 12.9 g/dL (14.0-18.0); Mean Corpuscular HGB CONC 29.5 g/dL (32.0-36.0); Mean Corpuscular Hemoglobin 25.4 pg (27.0-31.0); Mean Corpuscular Volume 86.1 fL (78.0-98.0); Platelet Count 168 thou/uL (130-400); RBC Distribution Width 14.2 % (11.5-14.5); Red Blood Cell (RBC) Count 5.08 mill/uL (4.70-6.10); White Blood Cell (WBC) Count 8.1 thou/uL (4.8-10.8)
--- NOTE | 2020-10-20 07:12 | EKG ---
Test Reason : Blood Pressure : / mmHG Vent. Rate : 087 BPM Atrial Rate : 087 BPM P-R Int : 206 ms QRS Dur : 096 ms QT Int : 358 ms P-R-T Axes : 031 133 042 degrees QTc Int : 430 ms Normal sinus rhythm Right axis deviation Cannot rule out Anterior infarct (cited on or before 17-OCT-2020) Abnormal ECG When compared with ECG of 17-OCT-2020 02:21, (Unconfirmed) T wave inversion now evident in Lateral leads Confirmed by DR. Jon TORRES ([id number]) on 10/20/2020 7:11:29 AM Referred By: KIKI Confirmed By:DR. Jon TORRES
[2020-10-20 07:21] LABS: BUN (Urea Nitrogen) 27 mg/dL (8.9-20.6); Calc. Creatinine Clearance 157 mL/min (70-130)
[2020-10-20 07:22] LABS: Calcium 8.5 mg/dL (7.8-10.44); Glucose 148 mg/dL (70-105)
[2020-10-20 07:31] LABS: Anion Gap 14 mmol/L (10-20); Carbon Dioxide 37 mmol/L (22-29); Chloride 91 mmol/L (98-107); Potassium 4.6 mmol/L (3.5-5.1); Sodium 137 mmol/L (136-145)
[2020-10-20 07:53] LABS: Hypochromia SLIGHT = 6-15 cells (100X) (0-5/hpf); MDiff Complete? YES; Platelet Morphology Comment Appears Adequate; Polychromasia SLIGHT = 2-3 cells (100X) (0-2/hpf)
[2020-10-20] MEDS: Carvedilol 25 MG TAB PO SCH ×2 (09:30→20:17)
[2020-10-20] MEDS: Aspirin Chewable 81 MG TAB PO SCH (09:30)
[2020-10-20] MEDS: Heparin 5,000 UNITS/ML VIAL SC SCH ×3 (09:32→22:41)
[2020-10-20] MEDS: hydrALAZINE 25 MG TAB PO SCH ×2 (09:32→20:16)
--- NOTE | 2020-10-20 12:16 | PRG ---
DATE OF SERVICE: SUBJECTIVE: A 35-year-old gentleman being seen for acute kidney injury. The patient denied nausea or chest pain. OBJECTIVE: GENERAL: The patient is awake and alert. VITAL SIGNS: Afebrile. Pulse 67, breathing at 16, blood pressure 115/79. HEENT: Head normocephalic and atraumatic. Eyes intact, no ulcers. Nose intact, no ulcers. Ears intact, no ulcers. NECK: Supple. No JVD. CHEST: Symmetrical and clear. CARDIOVASCULAR: Shows S1 and S2, no rub, no murmur. GASTROINTESTINAL: Abdomen is soft, bowel sounds positive. EXTREMITIES: Show no edema or ulcers. SKIN: Shows no rash or petechiae. MUSCULOSKELETAL: Shows no joint swelling or stiffness. GENITOURINARY: Shows no Hudson or CVA tenderness. NEUROLOGIC: Motor intact. Cranial nerves intact. LABORATORY DATA: Hemoglobin 12.7. Creatinine 2.03. ASSESSMENT: 1. Chronic kidney disease stage 3, stable. 2. Acute kidney injury, stable. 3. Hypertension. 4. Anemia, stable. PLAN: Medications based on GFR appropriate. No indication for dialysis. Job ID: [id number]
[2020-10-20] MEDS: HumaLOG 300 UNITS/3 ML VIAL SC PRN (13:27)
--- NOTE | 2020-10-20 13:27 | PDOC.CPN ---
- Subjective Date: 10/20/20 Time: 12:35 Interval history: No overnight events, patient sleeping in bed, states he walked with PT today. Denies chest pain and shortness of breath. Patient not very engaged in conversation today. - Review of Systems General: denies: fever/chills, weight/appetite/sleep changes, night sweats, fatigue Respiratory: denies: cough, congestion, shortness of breath, exercise intolerance Cardiovascular: denies: chest pain, palpitation, edema, paroxysmal nocturnal dyspnea, orthopnea Gastrointestinal: denies: nausea, vomiting, diarrhea, constipation, abd pain, GI bleeding Musculoskeletal: denies: pain, tenderness, stiffness, swelling, arthritis/arthralgias Neurological: denies: numbness, syncope, seizure, weakness - Objective Allergies/Adverse Reactions: Allergies Allergy/AdvReac Type Severity Reaction Status Date / Time No Known Allergies Allergy Unverified 10/17/20 08:28 Visit Medications: Current Medications Acetaminophen (Acetaminophen 325 Mg Tab) 650 mg PO Q4H PRN PRN Reason: Headache/Fever/Mild Pain (1-3) Last Admin: 10/19/20 09:36 Dose: 650 mg Documented by: Acetaminophen (Acetaminophen 650 Mg Suppository) 650 mg NE Q4H PRN PRN Reason: Headache/Fever/Mild Pain (1-3) Aspirin (Aspirin Chewable 81 Mg Tab) 81 mg PO DAILY ON LICENSE OF [facility] Last Admin: 10/20/20 09:30 Dose: 81 mg Documented by: Carvedilol (Carvedilol 25 Mg Tab) 25 mg PO BID ON LICENSE OF [facility] Last Admin: 10/20/20 09:30 Dose: 25 mg Documented by: Dextrose/Water (Dextrose 50% Abboject 50 Ml Syringe) 25 gm SLOW IVP PRN PRN PRN Reason: Hypoglycemia Furosemide (Furosemide 100 Mg/10 Ml Vial) 80 mg SLOW IVP 0600,1400 ON LICENSE OF [facility] Last Admin: 10/20/20 06:16 Dose: 80 mg Documented by: Glucagon (Glucagon 1 Mg/Ml Vial) 1 mg IM PRN PRN PRN Reason: Hypoglycemia Heparin Sodium (Porcine) (Heparin 5,000 Units/Ml Vial) 5,000 units SC TID ON LICENSE OF [facility] Last Admin: 10/20/20 09:32 Dose: 5,000 units Documented by: Hydralazine HCl (Hydralazine 20 Mg/Ml Vial) 10 mg SLOW IVP Q4H PRN PRN Reason: SBP Greater Than 170 Last Admin: 10/17/20 15:45 Dose: 10 mg Documented by: Hydralazine HCl (Hydralazine 25 Mg Tab) 25 mg PO BID ON LICENSE OF [facility] Last Admin: 10/20/20 09:32 Dose: 25 mg Documented by: Dextrose/Water (D5w) 1,000 mls @ 0 mls/hr IV .Q0M PRN PRN Reason: Hypoglycemia Insulin Human Lispro (Humalog 300 Units/3 Ml Vial) 0 units SC .MILD SLIDING SCALE PRN PRN Reason: Mild Correctional Scale Last Admin: 10/19/20 11:47 Dose: 3 unit Documented by: Insulin Human Lispro (Humalog 300 Units/3 Ml Vial) 0 units SC .BEDTIME SLIDING SC PRN PRN Reason: Bedtime Correctional Scale Isosorbide Mononitrate (Isosorbide Mononitrate Er 60 Mg Tab) 30 mg PO DAILY ON LICENSE OF [facility] Last Admin: 10/20/20 09:30 Dose: 30 mg Documented by: Lorazepam (Lorazepam 2 Mg/Ml Vial) 1 mg SLOW IVP Q4H PRN PRN Reason: Anxiety/Agitation Ondansetron HCl (Ondansetron Odt 4 Mg Tab) 4 mg PO Q6H PRN PRN Reason: Nausea/Vomiting Ondansetron HCl (Ondansetron Pf 4 Mg/2 Ml Vial) 4 mg IVP Q6H PRN PRN Reason: Nausea/Vomiting Sodium Chloride (Flush - Normal Saline 10 Ml Syringe) 10 ml IVF PRN PRN PRN Reason: Saline Flush Last Admin: 10/18/20 09:34 Dose: 10 ml Documented by: Vital Signs & Weight: Vital Signs Temp Pulse Resp BP BP Pulse Ox 10/20/20 10:57 97.0 F L 86 18 175/113 H 97 10/20/20 09:32 77 115/79 10/20/20 09:00 98.4 F 77 36 H 115/79 88 L 10/20/20 08:23 98.1 F 86 22 H 131/88 93 L 10/20/20 03:20 98.0 F 80 20 110/69 99 Weight 472 lb 8 oz - Quality Measures Condition: Heart Failure CV meds: Beta Raphael: Yes, EDWIN/ARB: No (d/t CKD/ ZAHIDA ), ASA: Yes - Physical Exam General: no apparent distress, other (somnolent) HEENT: mucus membranes moist Neck: no JVD/HJR, no bruit Cardiac: regular rate and rhythm Lungs: decreased breath sounds, oxygen Neuro: grossly intact Abdomen: active bowel sounds, soft Extremities: 2+ LE edema Skin: other (wound to RLE treated by wound care, dressing clean, dry, & intact) Musculoskeletal: no pain - Labs Result Diagrams: 10/20/20 06:53 10/20/20 06:53 Troponin/CKMB CK-MB (CK-2) 1.6 ng/mL (0-6.6) 10/17/20 03:37 Troponin I 0.057 ng/mL (< 0.028) H 10/17/20 09:42 - EKG Interpretation EKG Method: Telemetry EKG: sinus rhythm - Assessment/Plan Assessment/Plan: 1. Congestive heart failure: EF 45-50%: he was able to diureis 700 mL of fluid yesterday, will continue with current treatment plan and continue to diureis the patient. 2. Diabetes Mellitus Type II: treated by primary care services 3. HTN 4. Morbid Obesity 5. Cardiomyopathy 6. Chronic Kidney disease III: His creatinine improved from 2.15 to 2.03 today, managed by nephrology 7. Obstructive sleep apnea 8. Chronically elevated Troponin I levels 9. Respiratory failure with hypoxia: chest x-ray showed mild congestion 10. Leg wound: wound care treated right lower extremity leg wound, dressing clean, dry and intact. We will continue to follow the patient. Pt. seen and eval. by me. I agree with the A/P by the CELL MAKER. Chest clear. RRR. 2+ edema.
[2020-10-20 14:16] VITALS: BMI 64.0
--- NOTE | 2020-10-20 17:29 | RAD ---
Exam: Chest one view HISTORY:Follow-up congestive heart failure Comparison: 10/17/2020 FINDINGS: Cardiac silhouette:Cardiomegaly Aorta: Unremarkable Pulmonary vessels: Normal Costophrenic angles: Clear LUNGS: No masses or consolidation. Pneumothorax: None Osseous abnormalities: None IMPRESSION: Cardiomegaly, without evidence of congestive heart failure.
--- NOTE | 2020-10-20 17:42 | PDOC.BPN ---
- Brief Progress Note Encounter Date: 10/20/20 Encounter Time: 17:42 cxr-no chf , DCin am
[2020-10-21] MEDS: Furosemide 100 MG/10 ML VIAL SLOW IVP SCH ×2 (06:05→14:08)
[2020-10-21] MEDS: Heparin 5,000 UNITS/ML VIAL SC SCH (09:00)
[2020-10-21] MEDS: Carvedilol 25 MG TAB PO SCH (09:02)
[2020-10-21] MEDS: hydrALAZINE 25 MG TAB PO SCH (09:03)
[2020-10-21] MEDS: Aspirin Chewable 81 MG TAB PO SCH (09:03)
--- NOTE | 2020-10-21 09:40 | PRG ---
DATE OF SERVICE: SUBJECTIVE: A 35-year-old gentleman, being seen for acute kidney injury. The patient denied nausea, vomiting, or chest pain. PHYSICAL EXAMINATION: GENERAL: The patient is awake and alert. VITAL SIGNS: Afebrile, pulse 80, breathing at 16, blood pressure 153/100. HEENT: Head normocephalic and atraumatic. Eyes intact, no ulcers. Nose intact, no ulcers. Ears intact, no ulcers. Neck: Supple. No JVD. Chest: Symmetrical and clear. Cardiovascular: Shows S1 and S2, no rub, no murmur. Gastrointestinal: Abdomen is soft, bowel sounds positive. Extremities: Show no edema or ulcers. Skin: Shows no rash or petechiae. Musculoskeletal: Shows no joint swelling or stiffness. Genitourinary: Shows no Hudson or CVA tenderness. Neurologic: Motor intact. Cranial nerves intact. LABORATORY DATA: Labs reviewed. ASSESSMENT: 1. Stage 3 chronic kidney disease, stable. 2. Hypertension, stable. 3. Anemia, stable. Medication based on GFR appropriate. No indication for dialysis. Job ID: [id number]
--- NOTE | 2020-10-21 11:42 | PDOC.CPN ---
- Subjective Date: 10/21/20 Time: 11:15 Interval history: No overnight events, patient much more awake and alert today. He denies any cardiac complaints such as chest pain or shortness of breath, he believes that his BLE edema is decreasing overall. He states he slept well with no c/o dyspnea. No EKG changes overnight - Review of Systems General: denies: fever/chills, weight/appetite/sleep changes, night sweats, fatigue Respiratory: denies: cough, congestion, shortness of breath, exercise intolerance Cardiovascular: denies: chest pain, palpitation, edema, paroxysmal nocturnal dyspnea, orthopnea Gastrointestinal: denies: nausea, vomiting, diarrhea, constipation, abd pain, GI bleeding Musculoskeletal: denies: pain, tenderness, stiffness, swelling, a rthritis/arthralgias Neurological: denies: numbness, syncope, seizure, weakness - Objective Allergies/Adverse Reactions: Allergies Allergy/AdvReac Type Severity Reaction Status Date / Time No Known Allergies Allergy Unverified 10/17/20 08:28 Visit Medications: Current Medications Acetaminophen (Acetaminophen 325 Mg Tab) 650 mg PO Q4H PRN PRN Reason: Headache/Fever/Mild Pain (1-3) Last Admin: 10/19/20 09:36 Dose: 650 mg Documented by: Acetaminophen (Acetaminophen 650 Mg Suppository) 650 mg MD Q4H PRN PRN Reason: Headache/Fever/Mild Pain (1-3) Aspirin (Aspirin Chewable 81 Mg Tab) 81 mg PO DAILY [facility] Last Admin: 10/21/20 09:03 Dose: 81 mg Documented by: Carvedilol (Carvedilol 25 Mg Tab) 25 mg PO BID [facility] Last Admin: 10/21/20 09:02 Dose: 25 mg Documented by: Dextrose/Water (Dextrose 50% Abboject 50 Ml Syringe) 25 gm SLOW IVP PRN PRN PRN Reason: Hypoglycemia Furosemide (Furosemide 100 Mg/10 Ml Vial) 80 mg SLOW IVP 0600,1400 [facility] Last Admin: 10/21/20 06:05 Dose: 80 mg Documented by: Glucagon (Glucagon 1 Mg/Ml Vial) 1 mg IM PRN PRN PRN Reason: Hypoglycemia Heparin Sodium (Porcine) (Heparin 5,000 Units/Ml Vial) 5,000 units SC TID [facility] Last Admin: 10/21/20 09:00 Dose: 5,000 units Documented by: Hydralazine HCl (Hydralazine 20 Mg/Ml Vial) 10 mg SLOW IVP Q4H PRN PRN Reason: SBP Greater Than 170 Last Admin: 10/17/20 15:45 Dose: 10 mg Documented by: Hydralazine HCl (Hydralazine 25 Mg Tab) 25 mg PO BID BRANDT Last Admin: 10/21/20 09:03 Dose: 25 mg Documented by: Dextrose/Water (D5w) 1,000 mls @ 0 mls/hr IV .Q0M PRN PRN Reason: Hypoglycemia Insulin Human Lispro (Humalog 300 Units/3 Ml Vial) 0 units SC .MILD SLIDING SCALE PRN PRN Reason: Mild Correctional Scale Last Admin: 10/20/20 13:27 Dose: 3 unit Documented by: Insulin Human Lispro (Humalog 300 Units/3 Ml Vial) 0 units SC .BEDTIME SLIDING SC PRN PRN Reason: Bedtime Correctional Scale Isosorbide Mononitrate (Isosorbide Mononitrate Er 60 Mg Tab) 60 mg PO DAILY [facility] Lorazepam (Lorazepam 2 Mg/Ml Vial) 1 mg SLOW IVP Q4H PRN PRN Reason: Anxiety/Agitation Ondansetron HCl (Ondansetron Odt 4 Mg Tab) 4 mg PO Q6H PRN PRN Reason: Nausea/Vomiting Ondansetron HCl (Ondansetron Pf 4 Mg/2 Ml Vial) 4 mg IVP Q6H PRN PRN Reason: Nausea/Vomiting Sodium Chloride (Flush - Normal Saline 10 Ml Syringe) 10 ml IVF PRN PRN PRN Reason: Saline Flush Last Admin: 10/21/20 06:06 Dose: 10 ml Documented by: Vital Signs & Weight: Vital Signs Temp Pulse Resp BP BP BP Pulse Ox 10/21/20 09:03 80 171/114 H 10/21/20 08:00 97.7 F 81 18 171/114 H 98 10/21/20 07:30 98 10/21/20 06:55 96 10/21/20 06:00 80 153/100 H 10/21/20 03:45 98.0 F 76 16 140/87 97 10/20/20 23:48 98.4 F 80 12 127/76 99 Admit Weight 464 lb 4.8 oz Weight 463 lb 1.6 oz - Quality Measures Condition: Heart Failure CV meds: Beta Raphael: Yes, EDWIN/ARB: No (d/t CKD/ ZAHIDA ), ASA: Yes - Medication Contraindications No EDWIN/ARB reason: Medical contraindication - Physical Exam General: alert & oriented x3, appears well, no apparent distress HEENT: mucus membranes moist Neck: supple neck, no masses, no bruit Cardiac: regular rate and rhythm, no murmur Lungs: clear to auscultation, no wheeze, rales, rhonchi Neuro: grossly intact Abdomen: active bowel sounds, soft Extremities: 2+ LE edema, 2+ Posterior Tibial, 2+ Dorsalis Pedus Skin: clear, other (wound to RLE, treated by wound care, dressing clean, dry, & intact) Musculoskeletal: no pain - Labs Result Diagrams: 10/20/20 06:53 10/20/20 06:53 Troponin/CKMB CK-MB (CK-2) 1.6 ng/mL (0-6.6) 10/17/20 03:37 Troponin I 0.057 ng/mL (< 0.028) H 10/17/20 09:42 - EKG Interpretation EKG Method: Telemetry EKG: sinus rhythm (SR, HR 70-80's) - Assessment/Plan Assessment/Plan: 1. Congestive heart failure: EF 45-50%: he was able to diureis 170 mL of fluid yesterday, will continue with current treatment plan and continue to diureis the patient. 2. Diabetes Mellitus Type II: treated by primary care services 3. HTN: his last few BP readings have been elevated, will increase Isosorbide Mononitrate to 60 mg PO Daily 4. Morbid Obesity 5. Cardiomyopathy 6. Chronic Kidney disease III: His creatinine improved from 2.15 to 2.03 today, managed by nephrology 7. Obstructive sleep apnea: encouraged to have sleep study as an outpatient to get settings on CPAP machine corrected 8. Chronically elevated Troponin I levels 9. Respiratory failure with hypoxia: chest x-ray showed mild congestion, denies any chest pain or shortness of breath today, Lungs are CTA bilaterally anteriorly and posteriorly throughout 10. Leg wound: wound care treated right lower extremity leg wound, dressing clean, dry and intact. At this time, he is stable for discharge from a cardiology standpoint. He will need to follow-up with cardiology in 2 weeks. Long discussion with patient and fiance about importance of treatment plan and keeping follow-up appointments.
--- NOTE | 2020-10-21 11:51 | DIS ---
DATE OF ADMISSION: 10/17/2020 DATE OF DISCHARGE: 10/21/2020 DISPOSITION: Discharged home. PRIMARY CARE PROVIDER: Darian Machado MD. FINAL DIAGNOSES: Acute on chronic systolic heart failure, hypertensive emergency, diabetes mellitus type 2 with chronic kidney disease, obstructive sleep apnea, cardiomyopathy. DISCHARGE MEDICINES: 1. Aspirin 81 mg twice a day. 2. Hydralazine 25 mg twice a day. 3. Imdur 30 mg a day. 4. Lasix 40 mg twice a day. 5. Coreg 25 mg daily. 6. Aspirin 81 mg a day. ALLERGIES: NO KNOWN DRUG ALLERGIES. DIET: Heart healthy with low sodium. PENDING AT TIME OF DISCHARGE: Nothing. CODE STATUS: Full. CONSULTATIONS: Dr. Jose Alejandro Pak, Cardiology. Dr. Efren Rivas, Nephrology. PROCEDURES: None. HOSPITAL COURSE: Patient presented to the hospital, admitted through the emergency department with worsening swelling of his feet, shortness of breath. He has not taken any of his medicines for 2 weeks. He was noted to have mildly abnormal troponins, which is not unusual for him. Blood pressure was elevated. He was started on IV diuresis. His normal medications were added. He had an echocardiogram done which showed a mildly depressed EF of 45% to 50%. Dr. Pak's consultation suggested increase his Coreg to 25. The patient's initial chest x-ray showed pulmonary vascular congestion. Followup chest x-ray 10/20/20 showed no CHF. On admission, sodium 140, potassium 4.4, creatinine 1.87. BNP was actually minimally elevated to 292. Troponins were 0.07, 0.06, 0.06, which are consistent with past ones and most likely related to chronic kidney disease. His blood sugars without treatment ranged from 100 to 200. His last three being 119, 141, 142, 158. CBC was unremarkable. Dr. Efren Rivas considered he had chronic kidney disease. His blood pressure has been labile, but he is insistent on going home for the past 2 days. He is running diastolics blood pressures as low as 131/88 to 110/69 with some elevated as much as 153/100. However, he is insistent on discharge and he is being discharged. He has been placed on no medicine for the diabetes, was being left to his primary care provider to pick what medicines he will be started on as he is reluctant to stay in the hospital now that he is breathing okay. I will be leaving that to his PCP. Prescriptions have been written and transmitted. Job ID: [id number]
[2020-10-21 12:53] VITALS: BP 98/64; TEMP 98.8
[2020-10-21 13:56] LABS: #Basophils 0.1 thou/uL (0.0-0.2); #Lymphocytes 1.3 thou/uL (1.20-3.40); #Monocytes 0.8 thou/uL (0.11-0.59); #Neutrophils 3.6 thou/uL (1.40-6.50); %Basophils 1.3 % (0.0-1.0); %Eosinophils 0.7 % (0.0-10.0); %Lymphocytes 22.7 % (21.0-51.0); %Monocytes 13.8 % (0.0-10.0); %Neutrophils 61.5 % (42.0-75.0); Hemoglobin 12.1 g/dL (14.0-18.0); Mean Corpuscular Hemoglobin 25.4 pg (27.0-31.0); Mean Corpuscular Volume 84.9 fL (78.0-98.0); Mean Platelet Volume 10.4 fL (7.4-10.4); Platelet Count 143 thou/uL (130-400); Red Blood Cell (RBC) Count 4.76 mill/uL (4.70-6.10); White Blood Cell (WBC) Count 5.9 thou/uL (4.8-10.8)
[2020-10-21 14:19] LABS: BUN (Urea Nitrogen) 23 mg/dL (8.9-20.6); Calc. Creatinine Clearance 192 mL/min (70-130); Calcium 8.2 mg/dL (7.8-10.44); Glucose 142 mg/dL (70-105)
[2020-10-21 14:28] LABS: Anion Gap 17 mmol/L (10-20); Carbon Dioxide 38 mmol/L (22-29); Chloride 89 mmol/L (98-107); Potassium 3.8 mmol/L (3.5-5.1); Sodium 140 mmol/L (136-145)
== END 2020-10-21 14:26 | disposition home or self-care (01) | DRG 280 ==
LOC: ERS 01:56 → ERHOLD 05:38 → 2SE 08:03
PROVIDERS: ADMIT Student in an Organized Health Care Education/Training Program; ATTEND Internal Medicine
DX: I13.0 Hypertensive heart and chronic kidney disease with heart failure and stage 1 through stage 4 chronic kidney disease, or unspecified chronic kidney disease (principal); I21.A1 Myocardial infarction type 2; J96.21 Acute and chronic respiratory failure with hypoxia; I50.23 Acute on chronic systolic (congestive) heart failure; I16.1 Hypertensive emergency; N17.9 Acute kidney failure, unspecified; E66.2 Morbid (severe) obesity with alveolar hypoventilation; Z68.44 Body mass index [BMI] 60.0-69.9, adult; E87.3 Alkalosis; Z23 Encounter for immunization; Z20.822 Contact with and (suspected) exposure to COVID-19; E11.22 Type 2 diabetes mellitus with diabetic chronic kidney disease; F17.210 Nicotine dependence, cigarettes, uncomplicated; E78.00 Pure hypercholesterolemia, unspecified; I16.0 Hypertensive urgency; I42.8 Other cardiomyopathies; E11.65 Type 2 diabetes mellitus with hyperglycemia; E88.09 Other disorders of plasma-protein metabolism, not elsewhere classified; N18.32 Chronic kidney disease, stage 3b; E83.42 Hypomagnesemia; D63.1 Anemia in chronic kidney disease; E87.5 Hyperkalemia; Z91.19 Patient's noncompliance with other medical treatment and regimen; Z79.82 Long term (current) use of aspirin; Z79.899 Other long term (current) drug therapy
CPT/HCPCS: 36415; 36416; 71045; 80048; 80053; 80061; 81001; 82553; 83036; 83735; 83880; 84443; 84484; 85025; 87086; 87635; 90471; 90662; 93005; 93010; 93306; 93798; 94660; 96374; 96375; G0008; J0360; J1644; J1815; J1940; J2001; J3475; J3490; U0003; U0005

== ENCOUNTER 2021-01-05 11:10 | Emergency (ER) | payer OTHER, SELFPAY ==
[2021-01-05 14:21] LABS: Hemoglobin 12.8 g/dL (14.0-18.0); Mean Corpuscular HGB CONC 29.4 g/dL (32.0-36.0); Mean Corpuscular Hemoglobin 24.3 pg (27.0-31.0); Mean Corpuscular Volume 82.6 fL (78.0-98.0); Mean Platelet Volume 10.8 fL (7.4-10.4); Platelet Count 168 thou/uL (130-400); RBC Distribution Width 15.3 % (11.5-14.5); Red Blood Cell (RBC) Count 5.29 mill/uL (4.70-6.10); White Blood Cell (WBC) Count 7.7 thou/uL (4.8-10.8)
[2021-01-05 14:22] LABS: #Basophils 0.1 thou/uL (0.0-0.2); #Lymphocytes 1.3 thou/uL (1.20-3.40); #Monocytes 0.9 thou/uL (0.11-0.59); #Neutrophils 5.5 thou/uL (1.40-6.50); %Basophils 0.7 % (0.0-1.0); %Eosinophils 0.5 % (0.0-10.0); %Lymphocytes 16.2 % (21.0-51.0); %Neutrophils 71.5 % (42.0-75.0)
[2021-01-05 14:38] LABS: ALT (SGPT) 15 U/L (8-55); AST (SGOT) 15 U/L (5-34); Alkaline Phosphatase 87 U/L (40-110); Anion Gap 13 mmol/L (10-20); BUN (Urea Nitrogen) 27 mg/dL (8.9-20.6); Bilirubin, Total 0.4 mg/dL (0.2-1.2); Calc. Creatinine Clearance 0 mL/min (70-130); Calcium 8.1 mg/dL (7.8-10.44); Carbon Dioxide 28 mmol/L (22-29); Chloride 102 mmol/L (98-107); Globulin 3.7 g/dL (2.4-3.5); Glucose 143 mg/dL (70-105); Potassium 4.3 mmol/L (3.5-5.1); Protein, Total 6.7 g/dL (6.0-8.3); Sodium 139 mmol/L (136-145)
[2021-01-05 14:44] LABS: Anisocytosis SLIGHT = 6-15 cells (100X) (0-5/hpf); Hypochromia SLIGHT = 6-15 cells (100X) (0-5/hpf); MDiff Complete? YES; Ovalocytes SLIGHT = 2-5 cells (100X) (0-1/hpf); Platelet Morphology Comment Appears Adequate; Polychromasia SLIGHT = 2-3 cells (100X) (0-2/hpf); Stomatocytes SLIGHT = 2-5 cells (100X) (0-1/hpf); Target Cells SLIGHT = 2-5 cells (100X) (0-1/hpf); Tear Drops SLIGHT = 2-5 cells (100X) (0-1/hpf)
[2021-01-05 15:00] LABS: CKMB 1.3 ng/mL (0-6.6)
[2021-01-05] MEDS ORDERED: Furosemide 40 MG/4 ML VIAL ONE (15:18)
[2021-01-05 15:54] LABS: Bacteria/HPF None Seen HPF (None Seen); Bilirubin Negative (Negative); Blood, Urine Negative (Negative); Clarity Clear (Clear); Glucose, Urine (Dipstick) Normal (Negative); Ketone, Urine Negative (Negative); Leukocyte Negative Leu/uL (Negative); Nitrite Negative (Negative); Protein, Urine (Dipstick) 300 mg/dL (Neg-Trace); RBC/HPF 0-3 HPF (0-3); Specific Gravity, Urine 1.016 (1.002-1.036); Squamous Epithelial 0-3 HPF (0-3); Urobilinogen Normal mg/dL (Less than 2)
== END 2021-01-05 17:09 | disposition left against medical advice (07) ==
LOC: ERS 11:10
DX: I13.0 Hypertensive heart and chronic kidney disease with heart failure and stage 1 through stage 4 chronic kidney disease, or unspecified chronic kidney disease (principal); I50.9 Heart failure, unspecified; E11.22 Type 2 diabetes mellitus with diabetic chronic kidney disease; N18.9 Chronic kidney disease, unspecified; G47.30 Sleep apnea, unspecified; F17.220 Nicotine dependence, chewing tobacco, uncomplicated; Z79.899 Other long term (current) drug therapy; Z79.82 Long term (current) use of aspirin
CPT/HCPCS: 36415; 71045; 80053; 81003; 81015; 82553; 83880; 84484; 85025; 96374; J1940

== ENCOUNTER 2022-02-01 21:48 | Inpatient (IN) | payer BC ==
[2022-02-01] MEDS ORDERED: Pantoprazole 40 MG VIAL ONE (22:04)
[2022-02-01 22:39] LABS: Hemoglobin 7.3 g/dL (14.0-18.0); Mean Corpuscular HGB CONC 29.8 g/dL (32.0-36.0); Mean Corpuscular Hemoglobin 24.2 pg (27.0-31.0); Mean Corpuscular Volume 81.2 fL (78.0-98.0); Mean Platelet Volume 8.9 fL (7.4-10.4); Platelet Count 228 thou/uL (130-400); RBC Distribution Width 16.5 % (11.5-14.5); Red Blood Cell (RBC) Count 3.03 mill/uL (4.70-6.10); White Blood Cell (WBC) Count 11.6 thou/uL (4.8-10.8)
[2022-02-01 22:48] LABS: INR-International Normal Ratio 1.5; Prothrombin Time 18.6 sec (12.0-14.7)
[2022-02-01 22:57] LABS: #Basophils 0.1 thou/uL (0.0-0.2); #Eosinphils 0.1 thou/uL (0.0-0.7); #Lymphocytes 1.1 thou/uL (1.20-3.40); #Monocytes 0.9 thou/uL (0.11-0.59); #Neutrophils 9.3 thou/uL (1.40-6.50); %Basophils 0.6 % (0.0-1.0); %Eosinophils 0.8 % (0.0-10.0); %Lymphocytes 9.8 % (21.0-51.0); %Monocytes 8.1 % (0.0-10.0); %Neutrophils 80.7 % (42.0-75.0); Hypochromia SLIGHT = 6-15 cells (100X) (0-5/hpf); MDiff Complete? YES; Microcytosis SLIGHT = 6-15 cells (100X) (0-5/hpf)
[2022-02-01 23:01] LABS: ALT (SGPT) 77 U/L (8-55); AST (SGOT) 84 U/L (5-34); Albumin 2.6 g/dL (3.5-5.0); Alkaline Phosphatase 81 U/L (40-110); Anion Gap 14 mmol/L (10-20); BUN (Urea Nitrogen) 67 mg/dL (8.9-20.6); Bilirubin, Total 0.8 mg/dL (0.2-1.2); Calc. Creatinine Clearance 0 mL/min (70-130); Calcium 7.7 mg/dL (7.8-10.44); Carbon Dioxide 31 mmol/L (22-29); Chloride 101 mmol/L (98-107); Globulin 3.4 g/dL (2.4-3.5); Glucose 100 mg/dL (70-105); Lipase 26 U/L (8-78); Potassium 4.7 mmol/L (3.5-5.1); Sodium 141 mmol/L (136-145)
[2022-02-01 23:19] LABS: CKMB 1.1 ng/mL (0-6.6)
[2022-02-01] MEDS ORDERED: HYDROcodone/Acetaminophen 5/325 mg Tablet ONE (23:44)
[2022-02-02] MEDS ORDERED: Dextrose 5% in Water 1,000 ML IV PRN (01:09)
[2022-02-02] MEDS ORDERED: HumaLOG 300 UNITS/3 ML VIAL SC PRN ×2 (01:09)
[2022-02-02] MEDS ORDERED: Dextrose 50% Abboject 50 ML SYRINGE SLOW IVP PRN (01:09)
[2022-02-02 01:28] LABS: Acetaminophen Less than 10.0 mcg/mL (10.0-30.0); Alcohol Less than 10 mg/dL (Less than 10); Salicylate Less than 8.0 mg/dL (15.0-30.0)
[2022-02-02] MEDS ORDERED: Pantoprazole 80 MG in Sodium Chloride 0.9% 100 ML IVPB SCH (01:45)
[2022-02-02] MEDS ORDERED: traMADol HCl 50 MG TAB PO PRN ×4 (02:20→03:20)
[2022-02-02 02:21] LABS: Amphetamine Not Detected (NotDetected); Barbiturates Screen Not Detected (NotDetected); Benzodiazepine Screen Not Detected (NotDetected); Cocaine Metabolite Screen Not Detected (NotDetected); Methadone Not Detected (NotDetected); Methamphetamine Not Detected (NotDetected); Opiate Screen Detected (NotDetected); Oxycodone Screen Not Detected (NotDetected); Phencyclidine (PCP) Not Detected (NotDetected); THC/Cannabinoid Screen Not Detected (NotDetected); Tricyclic Screen Not Detected (NotDetected)
[2022-02-02 04:19] LABS: Hemoglobin A1c 5.7 % (4.0-6.0)
[2022-02-02 04:29] LABS: Hemoglobin 5.4 g/dL (14.0-18.0)
[2022-02-02 04:38] LABS: ALT (SGPT) 58 U/L (8-55); AST (SGOT) 58 U/L (5-34); Albumin 2.1 g/dL (3.5-5.0); Alkaline Phosphatase 70 U/L (40-110); Anion Gap 13 mmol/L (10-20); BUN (Urea Nitrogen) 69 mg/dL (8.9-20.6); Bilirubin, Total 0.7 mg/dL (0.2-1.2); Calc. Creatinine Clearance 67 mL/min (70-130); Calcium 7.3 mg/dL (7.8-10.44); Carbon Dioxide 29 mmol/L (22-29); Chloride 103 mmol/L (98-107); Globulin 2.8 g/dL (2.4-3.5); Glucose 120 mg/dL (70-105); Potassium 5.1 mmol/L (3.5-5.1); Protein, Total 4.9 g/dL (6.0-8.3); Sodium 140 mmol/L (136-145)
[2022-02-02 04:49] LABS: #Basophils 0.1 thou/uL (0.0-0.2); #Eosinphils 0.1 thou/uL (0.0-0.7); #Lymphocytes 2.1 thou/uL (1.20-3.40); #Monocytes 1.5 thou/uL (0.11-0.59); #Neutrophils 13.6 thou/uL (1.40-6.50); %Basophils 0.6 % (0.0-1.0); %Eosinophils 0.7 % (0.0-10.0); %Lymphocytes 11.8 % (21.0-51.0); %Monocytes 8.8 % (0.0-10.0); Hypochromia SLIGHT = 6-15 cells (100X) (0-5/hpf); MDiff Complete? YES; Mean Corpuscular HGB CONC 29.5 g/dL (32.0-36.0); Mean Corpuscular Hemoglobin 24.1 pg (27.0-31.0); Mean Corpuscular Volume 81.7 fL (78.0-98.0); Microcytosis SLIGHT = 6-15 cells (100X) (0-5/hpf); Platelet Count 258 thou/uL (130-400); RBC Distribution Width 16.4 % (11.5-14.5); Red Blood Cell (RBC) Count 2.25 mill/uL (4.70-6.10); White Blood Cell (WBC) Count 17.4 thou/uL (4.8-10.8)
[2022-02-02] MEDS: Furosemide 20 MG/2 ML VIAL SLOW IVP SCH ×2 (05:32→16:33)
[2022-02-02] MEDS ORDERED: Pantoprazole 40 MG VIAL IVP SCH (09:00)
[2022-02-02 09:22] LABS: SARS-CoV-2 NAA Rapid Test Not Detected (NotDetected)
[2022-02-02] MEDS ORDERED: Ketamine 50 MG/ML (10ML VIAL) ONE (11:09)
[2022-02-02] MEDS ORDERED: Dexmedetomidine 200 MCG/2 ML VIAL ONE (11:10)
[2022-02-02] MEDS ORDERED: Glycopyrrolate 0.2 MG/ML 5 ML SYRINGE ONE (11:24)
[2022-02-02] MEDS ORDERED: Labetalol HCl 100 MG/20 ML VIAL ONE (11:24)
[2022-02-02 13:18] LABS: Hemoglobin 6.9 g/dL (14.0-18.0); Platelet Count 238 thou/uL (130-400)
[2022-02-02 14:54] LABS: Troponin I 0.038 ng/mL (< 0.028)
[2022-02-02 17:00] LABS: Actual Bicarbonate (HCO3a) 35.2 mEq/L (22-28); Calcium, Ionized (arterial) 1.04 mmol/L (1.12-1.30); Carboxyhemoglobin (COHb) 2.3 gm% (0.0-3.0); Hemoglobin (Hb) 7.3 g/dL (14.0-18.0); Potassium - ABG Lab 5.47 mmol/L (3.70-5.30)
[2022-02-02 18:17] LABS: Actual Bicarbonate (HCO3a) 33.6 mEq/L (22-28); Base Excess (BEa) 5.3 mEq/L (-2.0 to +3.0); Calcium, Ionized (arterial) 1.04 mmol/L (1.12-1.30); Carboxyhemoglobin (COHb) 2.7 gm% (0.0-3.0); Hemoglobin (Hb) 7.1 g/dL (14.0-18.0); Potassium - ABG Lab 5.11 mmol/L (3.70-5.30)
[2022-02-02 18:18] LABS: CO2 Tension 80.3 mmHg (35.0-45.0); Puncture Site LBA; pH, Arterial 7.24 (7.35-7.45)
[2022-02-02 18:19] LABS: ALV-art Gradient 39.525 mmHg (0-20)
[2022-02-02 18:45] LABS: Troponin I 0.028 ng/mL (< 0.028)
[2022-02-02] MEDS: Pantoprazole 40 MG VIAL IVP SCH (20:34)
[2022-02-02 21:15] LABS: Hemoglobin 6.9 g/dL (14.0-18.0); Platelet Count 163 thou/uL (130-400)
[2022-02-03 04:31] LABS: INR-International Normal Ratio 1.4; PTT 27.5 sec (22.9-36.1); Prothrombin Time 17.1 sec (12.0-14.7)
[2022-02-03 04:47] LABS: Anisocytosis SLIGHT = 6-15 cells (100X) (0-5/hpf); Band 17 % (5-11); Eosinophils 1 % (0-10); Hemoglobin 6.1 g/dL (14.0-18.0); Lymphocytes 1 % (21-51); MDiff Complete? YES; Mean Corpuscular HGB CONC 32.3 g/dL (32.0-36.0); Mean Corpuscular Hemoglobin 27.1 pg (27.0-31.0); Mean Platelet Volume 8.3 fL (7.4-10.4); Monocytes 2 % (0-10); Neutrophil 78 % (42-75); Nucleated RBC 1 % (0); Platelet Count 149 thou/uL (130-400); RBC Distribution Width 18.1 % (11.5-14.5); Red Blood Cell (RBC) Count 2.27 mill/uL (4.70-6.10); White Blood Cell (WBC) Count 20.9 thou/uL (4.8-10.8)
[2022-02-03 04:54] LABS: ALT (SGPT) 55 U/L (8-55); AST (SGOT) 64 U/L (5-34); Alkaline Phosphatase 63 U/L (40-110); Anion Gap 14 mmol/L (10-20); BUN (Urea Nitrogen) 68 mg/dL (8.9-20.6); Bilirubin, Total 1.5 mg/dL (0.2-1.2); Calc. Creatinine Clearance 69 mL/min (70-130); Calcium 7.4 mg/dL (7.8-10.44); Carbon Dioxide 29 mmol/L (22-29); Chloride 107 mmol/L (98-107); Globulin 2.6 g/dL (2.4-3.5); Glucose 100 mg/dL (70-105); Potassium 5.4 mmol/L (3.5-5.1); Protein, Total 4.6 g/dL (6.0-8.3); Sodium 145 mmol/L (136-145)
[2022-02-03] MEDS: Acetaminophen 325 MG TAB PO PRN ×3 (06:22→19:56)
[2022-02-03] MEDS: Furosemide 20 MG/2 ML VIAL SLOW IVP SCH (06:25)
[2022-02-03 07:28] LABS: Hemoglobin 6.3 g/dL (14.0-18.0)
[2022-02-03] MEDS ORDERED: traMADol HCl 50 MG TAB PO PRN (07:41)
[2022-02-03] MEDS: Pantoprazole 40 MG VIAL IVP SCH ×2 (09:51→19:56)
[2022-02-03 10:02] LABS: CO2 Tension 92.3 mmHg (35.0-45.0); Puncture Site RRA
[2022-02-03 10:04] LABS: ALV-art Gradient 34.525 mmHg (0-20)
[2022-02-03] MEDS ORDERED: Fentanyl 100 MCG/2 ML VIAL SLOW IVP SCH (13:30)
[2022-02-03] MEDS ORDERED: GoLYTELY 4,000 ml Bottle PO SCH (17:00)
[2022-02-03 19:47] LABS: Hemoglobin 6.6 g/dL (14.0-18.0)
[2022-02-03] MEDS ORDERED: fentaNYL Citrate/PF 100 MCG/2 ML SYRINGE ONE (21:45)
[2022-02-03] MEDS ORDERED: Ketamine 50 MG/ML (10ML VIAL) ONE (21:45)
[2022-02-03] MEDS ORDERED: PHENYLEPHRINE-NS 100 MCG/ML 10 ML SYRINGE ONE (22:15)
[2022-02-03] MEDS ORDERED: Succinylcholine 200 MG/10 ml SYRINGE FS ONE (22:15)
[2022-02-03] MEDS ORDERED: PROPOFOL 200 MG/20 ML VIAL ONE (22:15)
[2022-02-03] MEDS ORDERED: Lidocaine 1% PF 5 ML VIAL ONE (22:15)
[2022-02-03] MEDS: Pantoprazole 80 MG in Sodium Chloride 0.9% 100 ML IVPB SCH (23:46)
[2022-02-04 06:20] LABS: #Eosinphils 0.2 thou/uL (0.0-0.7); #Lymphocytes 1.8 thou/uL (1.20-3.40); #Monocytes 1.2 thou/uL (0.11-0.59); #Neutrophils 9.5 thou/uL (1.40-6.50); %Basophils 0.3 % (0.0-1.0); %Eosinophils 1.2 % (0.0-10.0); %Lymphocytes 14.2 % (21.0-51.0); %Monocytes 9.6 % (0.0-10.0); %Neutrophils 74.7 % (42.0-75.0); Hemoglobin 6.4 g/dL (14.0-18.0); Mean Corpuscular HGB CONC 31.6 g/dL (32.0-36.0); Mean Corpuscular Hemoglobin 27.3 pg (27.0-31.0); Mean Corpuscular Volume 86.6 fL (78.0-98.0); Mean Platelet Volume 7.8 fL (7.4-10.4); Platelet Count 136 thou/uL (130-400); RBC Distribution Width 18.5 % (11.5-14.5); Red Blood Cell (RBC) Count 2.35 mill/uL (4.70-6.10); White Blood Cell (WBC) Count 12.7 thou/uL (4.8-10.8)
[2022-02-04 06:39] LABS: ALT (SGPT) 51 U/L (8-55); AST (SGOT) 52 U/L (5-34); Albumin 2.1 g/dL (3.5-5.0); Alkaline Phosphatase 59 U/L (40-110); Anion Gap 11 mmol/L (10-20); BUN (Urea Nitrogen) 60 mg/dL (8.9-20.6); Bilirubin, Total 1.3 mg/dL (0.2-1.2); Calc. Creatinine Clearance 78 mL/min (70-130); Calcium 7.1 mg/dL (7.8-10.44); Carbon Dioxide 32 mmol/L (22-29); Chloride 102 mmol/L (98-107); Globulin 2.6 g/dL (2.4-3.5); Glucose 99 mg/dL (70-105); Protein, Total 4.7 g/dL (6.0-8.3); Sodium 141 mmol/L (136-145)
[2022-02-04] MEDS: Pantoprazole 80 MG in Sodium Chloride 0.9% 100 ML IVPB SCH ×2 (10:12→20:09)
[2022-02-04 11:45] VITALS: BMI 64.3
[2022-02-04 11:58] LABS: Hemoglobin 7.3 g/dL (14.0-18.0)
[2022-02-04] MEDS: Acetaminophen 325 MG TAB PO PRN (13:43)
[2022-02-04] MEDS ORDERED: traMADol HCl 50 MG TAB PO SCH (14:00)
[2022-02-04] MEDS: traMADol HCl 50 MG TAB PO PRN (14:29)
[2022-02-05] MEDS: Acetaminophen 325 MG TAB PO PRN (01:17)
[2022-02-05 03:52] LABS: #Basophils 0.1 thou/uL (0.0-0.2); #Eosinphils 0.1 thou/uL (0.0-0.7); #Lymphocytes 1.8 thou/uL (1.20-3.40); #Monocytes 1.2 thou/uL (0.11-0.59); #Neutrophils 7.8 thou/uL (1.40-6.50); %Basophils 0.5 % (0.0-1.0); %Eosinophils 1.1 % (0.0-10.0); %Lymphocytes 16.5 % (21.0-51.0); %Monocytes 10.7 % (0.0-10.0); %Neutrophils 71.3 % (42.0-75.0); Hemoglobin 7.1 g/dL (14.0-18.0); Mean Corpuscular HGB CONC 32.5 g/dL (32.0-36.0); Mean Corpuscular Hemoglobin 28.7 pg (27.0-31.0); Mean Corpuscular Volume 88.4 fL (78.0-98.0); Mean Platelet Volume 8.3 fL (7.4-10.4); Platelet Count 154 thou/uL (130-400); RBC Distribution Width 18.8 % (11.5-14.5); Red Blood Cell (RBC) Count 2.45 mill/uL (4.70-6.10); White Blood Cell (WBC) Count 10.9 thou/uL (4.8-10.8)
[2022-02-05 04:14] LABS: ALT (SGPT) 51 U/L (8-55); AST (SGOT) 51 U/L (5-34); Albumin 2.3 g/dL (3.5-5.0); Alkaline Phosphatase 71 U/L (40-110); Anion Gap 14 mmol/L (10-20); BUN (Urea Nitrogen) 49 mg/dL (8.9-20.6); Bilirubin, Total 0.9 mg/dL (0.2-1.2); Calc. Creatinine Clearance 83 mL/min (70-130); Carbon Dioxide 29 mmol/L (22-29); Chloride 100 mmol/L (98-107); Globulin 3.2 g/dL (2.4-3.5); Glucose 95 mg/dL (70-105); Potassium 3.9 mmol/L (3.5-5.1); Protein, Total 5.5 g/dL (6.0-8.3); Sodium 139 mmol/L (136-145)
[2022-02-05] MEDS: Pantoprazole 80 MG in Sodium Chloride 0.9% 100 ML IVPB SCH ×2 (05:50→17:51)
[2022-02-05] MEDS ORDERED: hydrALAZINE 20 MG/ML VIAL SLOW IVP PRN (11:30)
[2022-02-05] MEDS: traMADol HCl 50 MG TAB PO PRN ×2 (12:10→19:43)
[2022-02-05] MEDS ORDERED: Fentanyl 100 MCG/2 ML VIAL SLOW IVP SCH (16:45)
[2022-02-05] MEDS: Carvedilol 6.25 MG TAB PO SCH (19:42)
[2022-02-05] MEDS ORDERED: Furosemide 40 MG TAB PO SCH (21:00)
[2022-02-05] MEDS ORDERED: Carvedilol 25 MG TAB PO SCH (21:00)
[2022-02-06 04:07] LABS: #Eosinphils 0.1 thou/uL (0.0-0.7); #Lymphocytes 1.5 thou/uL (1.20-3.40); #Neutrophils 6.9 thou/uL (1.40-6.50); %Basophils 0.2 % (0.0-1.0); %Eosinophils 1.4 % (0.0-10.0); %Lymphocytes 15.7 % (21.0-51.0); %Monocytes 10.7 % (0.0-10.0); %Neutrophils 71.9 % (42.0-75.0); Hemoglobin 7.3 g/dL (14.0-18.0); Mean Corpuscular HGB CONC 32.2 g/dL (32.0-36.0); Mean Corpuscular Hemoglobin 28.5 pg (27.0-31.0); Mean Corpuscular Volume 88.7 fL (78.0-98.0); Mean Platelet Volume 8.3 fL (7.4-10.4); Platelet Count 164 thou/uL (130-400); RBC Distribution Width 19.1 % (11.5-14.5); Red Blood Cell (RBC) Count 2.57 mill/uL (4.70-6.10); White Blood Cell (WBC) Count 9.6 thou/uL (4.8-10.8)
[2022-02-06 05:20] LABS: ALT (SGPT) 41 U/L (8-55); AST (SGOT) 35 U/L (5-34); Albumin 2.5 g/dL (3.5-5.0); Alkaline Phosphatase 77 U/L (40-110); Anion Gap 12 mmol/L (10-20); BUN (Urea Nitrogen) 42 mg/dL (8.9-20.6); Bilirubin, Total 0.7 mg/dL (0.2-1.2); Calc. Creatinine Clearance 87 mL/min (70-130); Calcium 7.5 mg/dL (7.8-10.44); Carbon Dioxide 32 mmol/L (22-29); Chloride 102 mmol/L (98-107); Globulin 3.3 g/dL (2.4-3.5); Glucose 107 mg/dL (70-105); Protein, Total 5.8 g/dL (6.0-8.3); Sodium 142 mmol/L (136-145)
[2022-02-06] MEDS: Cepastat Lozenges 1 LOZ PO PRN ×3 (05:56→20:39)
[2022-02-06] MEDS: Pantoprazole 80 MG in Sodium Chloride 0.9% 100 ML IVPB SCH (05:57)
[2022-02-06] MEDS: Carvedilol 6.25 MG TAB PO SCH ×2 (08:44→20:39)
[2022-02-06] MEDS ORDERED: Carvedilol 6.25 MG TAB PO SCH (10:30)
[2022-02-06] MEDS: Acetaminophen 325 MG TAB PO PRN (12:12)
[2022-02-07] MEDS: Pantoprazole 80 MG in Sodium Chloride 0.9% 100 ML IVPB SCH (02:50)
[2022-02-07] MEDS: Acetaminophen 325 MG TAB PO PRN (04:32)
[2022-02-07 04:43] LABS: #Eosinphils 0.1 thou/uL (0.0-0.7); #Lymphocytes 1.2 thou/uL (1.20-3.40); #Monocytes 0.8 thou/uL (0.11-0.59); #Neutrophils 5.8 thou/uL (1.40-6.50); %Basophils 0.3 % (0.0-1.0); %Eosinophils 1.1 % (0.0-10.0); %Lymphocytes 14.8 % (21.0-51.0); %Monocytes 10.5 % (0.0-10.0); %Neutrophils 73.3 % (42.0-75.0); Hemoglobin 7.3 g/dL (14.0-18.0); Mean Corpuscular HGB CONC 32.1 g/dL (32.0-36.0); Mean Corpuscular Hemoglobin 29.1 pg (27.0-31.0); Mean Corpuscular Volume 90.6 fL (78.0-98.0); Mean Platelet Volume 7.9 fL (7.4-10.4); Platelet Count 144 thou/uL (130-400); RBC Distribution Width 18.8 % (11.5-14.5); Red Blood Cell (RBC) Count 2.52 mill/uL (4.70-6.10); White Blood Cell (WBC) Count 7.9 thou/uL (4.8-10.8)
[2022-02-07 05:05] LABS: ALT (SGPT) 35 U/L (8-55); AST (SGOT) 27 U/L (5-34); Albumin 2.7 g/dL (3.5-5.0); Alkaline Phosphatase 83 U/L (40-110); Anion Gap 11 mmol/L (10-20); BUN (Urea Nitrogen) 38 mg/dL (8.9-20.6); Bilirubin, Total 0.7 mg/dL (0.2-1.2); Calc. Creatinine Clearance 90 mL/min (70-130); Calcium 7.7 mg/dL (7.8-10.44); Carbon Dioxide 31 mmol/L (22-29); Chloride 102 mmol/L (98-107); Globulin 3.8 g/dL (2.4-3.5); Glucose 115 mg/dL (70-105); Potassium 4.2 mmol/L (3.5-5.1); Protein, Total 6.5 g/dL (6.0-8.3); Sodium 140 mmol/L (136-145)
[2022-02-07 10:07] VITALS: BP 113/65
[2022-02-07] MEDS: Carvedilol 6.25 MG TAB PO SCH (10:07)
[2022-02-07 11:24] VITALS: TEMP 97.1
== END 2022-02-07 12:47 | disposition home or self-care (01) | DRG 377 ==
LOC: ERS 21:48 → IMCU/EMU 23:58 → CCU 02-02 17:24 → IMCU/EMU 02-05 10:31
PROVIDERS: ADMIT Family Medicine; ATTEND Family Medicine
PROC: 0DB78ZX Excision of Stomach, Pylorus, Via Natural or Artificial Opening Endoscopic, Diagnostic (ICD-10-PCS; principal; 2022-02-02)
PROC: 5A09457 Assistance with Respiratory Ventilation, 24-96 Consecutive Hours, Continuous Positive Airway Pressure (ICD-10-PCS; 2022-02-02)
PROC: 30233K1 Transfusion of Nonautologous Frozen Plasma into Peripheral Vein, Percutaneous Approach (ICD-10-PCS; 2022-02-02)
PROC: 30233N1 Transfusion of Nonautologous Red Blood Cells into Peripheral Vein, Percutaneous Approach (ICD-10-PCS; 2022-02-02)
PROC: 0W3P8ZZ Control Bleeding in Gastrointestinal Tract, Via Natural or Artificial Opening Endoscopic (ICD-10-PCS; 2022-02-03)
PROC: 3E033XZ Introduction of Vasopressor into Peripheral Vein, Percutaneous Approach (ICD-10-PCS; 2022-02-03)
DX: K25.4 Chronic or unspecified gastric ulcer with hemorrhage (principal); J96.22 Acute and chronic respiratory failure with hypercapnia; D62 Acute posthemorrhagic anemia; N17.9 Acute kidney failure, unspecified; E66.2 Morbid (severe) obesity with alveolar hypoventilation; Z68.44 Body mass index [BMI] 60.0-69.9, adult; I13.0 Hypertensive heart and chronic kidney disease with heart failure and stage 1 through stage 4 chronic kidney disease, or unspecified chronic kidney disease; I50.20 Unspecified systolic (congestive) heart failure; I42.0 Dilated cardiomyopathy; N18.4 Chronic kidney disease, stage 4 (severe); G47.33 Obstructive sleep apnea (adult) (pediatric); F17.220 Nicotine dependence, chewing tobacco, uncomplicated; I83.009 Varicose veins of unspecified lower extremity with ulcer of unspecified site; D63.1 Anemia in chronic kidney disease; Z20.822 Contact with and (suspected) exposure to COVID-19; I12.9 Hypertensive chronic kidney disease with stage 1 through stage 4 chronic kidney disease, or unspecified chronic kidney disease; E11.22 Type 2 diabetes mellitus with diabetic chronic kidney disease; Z88.8 Allergy status to other drugs, medicaments and biological substances; Z79.82 Long term (current) use of aspirin; Z79.899 Other long term (current) drug therapy; Z98.890 Other specified postprocedural states
CPT/HCPCS: 36415; 36416; 36430; 36600; 71045; 76700; 80053; 80306; 80307; 82553; 82728; 82805; 83036; 83540; 83690; 83880; 84145; 84484; 85025; 85610; 85730; 86850; 86900; 86901; 88305; 88312; 93005; 93306; 93970; 94660; 96374; C9113; J1940; J2704; J3010; J3490; P9016; P9059; U0002

== ENCOUNTER 2022-11-30 13:43 | Emergency (ER) | payer BC ==
[2022-11-30] MEDS ORDERED: Acetaminophen/Codeine 30-300mg Tablet ONE (16:43)
== END 2022-11-30 17:02 | disposition home or self-care (01) ==
LOC: ERS 13:43
DX: M25.572 Pain in left ankle and joints of left foot (principal); I11.0 Hypertensive heart disease with heart failure; I50.9 Heart failure, unspecified; E11.9 Type 2 diabetes mellitus without complications; K21.9 Gastro-esophageal reflux disease without esophagitis; Z79.82 Long term (current) use of aspirin

== ENCOUNTER 2023-07-27 15:25 | Inpatient (IN) | payer OTHER ==
[2023-07-27] MEDS ORDERED: EPINEPHrine 1 MG/10 ML Abboject SYRINGE ONE (15:31)
[2023-07-27] MEDS ORDERED: Sodium Bicarb 50 MEQ/50 ML Abboject 8.4% SYRINGE ONE (15:31)
[2023-07-27] MEDS ORDERED: Calcium Chloride 1 GM/10 ML Abboject SYRINGE ONE (15:31)
[2023-07-27] MEDS ORDERED: Amiodarone 150 MG/3 ML VIAL ONE (15:31)
[2023-07-27] MEDS ORDERED: NOREPINEPHRINE 8 MG/250 ML-D5W 250 ML ONE (15:39)
[2023-07-27] MEDS ORDERED: Magnesium 2 GM/50 ML BAG (IN WATER) ONE ×2 (15:44→15:46)
[2023-07-27 15:48] LABS: Delete Auto Diff?? YES; Hematocrit 44.3 % (42.0-52.0); Hemoglobin 13.2 g/dL (14.0-18.0); Manual Diff?? YES; Mean Corpuscular HGB CONC 29.8 g/dL (32.0-36.0); Mean Corpuscular Hemoglobin 27.1 pg (27.0-31.0); Mean Platelet Volume 12.9 fL (7.4-10.4); Platelet Count 149 10x3/uL (130-400); RBC Distribution Width 14.9 % (11.5-14.5); Red Blood Cell (RBC) Count 4.87 mill/uL (4.70-6.10); White Blood Cell (WBC) Count 7.8 10x3/uL (4.8-10.8)
[2023-07-27] MEDS ORDERED: ALTEPLASE 50 MG/50 ML VIAL ONE (16:00)
[2023-07-27 16:13] LABS: Burr Cells SLIGHT = 2-5 cells HPF (0-1); CellaVision Operator ID LAB.KB; Elliptocytes SLIGHT = 2-5 cells HPF (0-1); Eosinophils 1 % (0-10); Large Platelets 5.1 % (0-5); Lymphocytes 51 % (21-51); Monocytes 10 % (0-10); Myelocyte 4 % (0-0); Neutrophil 16 % (42-75); Nucleated RBC (Manual Ct) 3 % (0); Platelet Adequacy Comment Platelets Normal; Polychromasia SLIGHT = 2-3 cells HPF (0-2); Reactive Lymphocytes 14 % (0-10); Smudge Cells 19.4 %; Total Cell Count 98
[2023-07-27 16:15] LABS: ALT (SGPT) 55 U/L (8-55); AST (SGOT) 50 U/L (5-34); Albumin 3.7 g/dL (3.5-5.0); Alkaline Phosphatase 95 U/L (40-110); Anion Gap 24 mmol/L (10-20); BUN (Urea Nitrogen) 42 mg/dL (8.9-20.6); Bilirubin, Total 0.2 mg/dL (0.2-1.2); Calc. Creatinine Clearance 0 mL/min (70-130); Calcium 8.4 mg/dL (7.8-10.44); Carbon Dioxide 16 mmol/L (22-29); Chloride 110 mmol/L (98-107); Estimated GFR 11; Globulin 2.8 g/dL (2.4-3.5); Glucose 208 mg/dL (70-105); Potassium 3.6 mmol/L (3.5-5.1); Protein, Total 6.5 g/dL (6.0-8.3); Sodium 146 mmol/L (136-145)
[2023-07-27 16:19] LABS: Troponin I 0.015 ng/mL (< 0.028)
[2023-07-27] MEDS ORDERED: fentaNYL 50 mcg/mL 1 mL Vial ONE ×2 (16:26→16:34)
[2023-07-27] MEDS ORDERED: Fentanyl CADD 100 ML IV SCH (16:30)
[2023-07-27] MEDS ORDERED: Amiodarone 150 MG, Admixture Fee 1 EACH in Dextrose 5% in Water 100 ML IVPB SCH (16:30)
[2023-07-27] MEDS ORDERED: Amiodarone 450 MG, Admixture Fee 1 EACH in Dextrose 5% in Water 250 ML IVPB SCH (16:30)
[2023-07-27] MEDS ORDERED: LORazepam 2 MG/ML SYR.(CARPUJECT) ONE ×2 (16:36→16:51)
[2023-07-27 16:49] LABS: Actual Bicarbonate (HCO3a) 18.1 mEq/L (22-28); Analyzer IN Cardio ER; Calcium, Ionized (arterial) 1.28 mmol/L (1.12-1.30); Carboxyhemoglobin (COHb) 0.3 gm% (0.0-3.0); Hematocrit-ABG 38 % (42.0-52.0); Hemoglobin (Hb) 12.8 g/dL (14.0-18.0); O2 Tension (PaO2), arterial 232.8 mmHg (80.0-100.0); Potassium - ABG Lab 4.49 mmol/L (3.70-5.30)
[2023-07-27 16:54] LABS: Puncture Site ART; pH, Arterial 7.186 (7.35-7.45)
[2023-07-27 16:57] LABS: Bacteria/HPF 1+ HPF (None Seen); Bilirubin Negative (Negative); Blood, Urine 3+ (Negative); CAUTI Indications for Culture Alt mental st,lethar; Clarity Turbid (Clear); Glucose, Urine (Dipstick) 30 mg/dL (Negative); Ketone, Urine Negative (Negative); Leukocyte Negative Leu/uL (Negative); Nitrite Negative (Negative); Protein, Urine (Dipstick) 300 mg/dL (Neg-Trace); RBC/HPF 21-50 HPF (0-3); Specific Gravity, Urine 1.013 (1.002-1.036); Squamous Epithelial 0-3 HPF (0-3); Urobilinogen Normal mg/dL (Less than 2)
[2023-07-27 16:58] LABS: Sperm/HPF Rare HPF (None Seen)
[2023-07-27 16:59] LABS: Urine Culture Reflex Yes Yes
[2023-07-27] MEDS ORDERED: Propofol BOLUS 1,000 MG/100 ML VIAL IV PRN (17:00)
[2023-07-27] MEDS ORDERED: DISCONTINUE PREVIOUS NARCOTIC PAIN MEDICATIONS AND BENZODIAZEPINES FS SCH (17:00)
[2023-07-27] MEDS ORDERED: Fentanyl BOLUS 250 ML IVPB PRN (17:00)
[2023-07-27] MEDS ORDERED: Propofol 1,000 MG/100 ML VIAL IV ONE (17:04)
[2023-07-27 17:10] LABS: Amphetamine Not Detected (NotDetected); Barbiturates Screen Not Detected (NotDetected); Benzodiazepine Screen Not Detected (NotDetected); Cocaine Metabolite Screen Not Detected (NotDetected); Methadone Not Detected (NotDetected); Methamphetamine Not Detected (NotDetected); Opiate Screen Not Detected (NotDetected); Oxycodone Screen Not Detected (NotDetected); Phencyclidine (PCP) Not Detected (NotDetected); THC/Cannabinoid Screen Not Detected (NotDetected); Tricyclic Screen Not Detected (NotDetected)
[2023-07-27] MEDS ORDERED: Ipratropium/Albuterol 3 ML NEB NEB PRN (17:26)
[2023-07-27] MEDS ORDERED: Vasopressin 20 UNITS in Sodium Chloride 0.9% 50 ML IV PRN (17:26)
[2023-07-27] MEDS ORDERED: Insulin Regular 300 UNITS/3 ML VIAL SC PRN (17:26)
[2023-07-27] MEDS ORDERED: NOREPINEPHRINE 8 MG/250 ML-D5W 250 ML IVPB PRN (17:26)
[2023-07-27] MEDS ORDERED: Ventilator Sedation Protocol 1 EACH FS SCH (17:30)
[2023-07-27] MEDS ORDERED: Sodium Bicarbonate 150 MEQ in Dextrose 5% in Water 1,000 ML IV SCH (18:00)
[2023-07-27] MEDS: Lorazepam 2 MG/ML VIAL SLOW IVP PRN ×2 (18:15→21:15)
[2023-07-27] MEDS: Propofol 1,000 MG/100 ML VIAL IV PRN (18:30)
[2023-07-27] MEDS ORDERED: Piperacillin/Tazobactam 3.375 GM in Sodium Chloride 0.9% 100 ML IVPB SCH (18:30)
[2023-07-27] MEDS ORDERED: Vancomycin (BATCH) 2 GM in Premix 1 BAG IVPB SCH (18:45)
[2023-07-27] MEDS: Scopolamine 1 mg/72 hour Patch TD SCH (19:19)
[2023-07-27] MEDS: Amiodarone 450 MG in Dextrose 5% in Water 250 ML IVPB SCH (19:27)
[2023-07-27] MEDS ORDERED: Vancomycin Dose by Levels Sliding Scale (Wt > 99) FS SCH (19:30)
[2023-07-27] MEDS ORDERED: levETIRAcetam 500 MG/5 ML VIAL SLOW IVP SCH (21:45)
[2023-07-27 21:47] LABS: ALT (SGPT) 111 U/L (8-55); AST (SGOT) 116 U/L (5-34); Albumin 3.3 g/dL (3.5-5.0); Alkaline Phosphatase 102 U/L (40-110); Anion Gap 14 mmol/L (10-20); BUN (Urea Nitrogen) 48 mg/dL (8.9-20.6); Bilirubin, Total 0.3 mg/dL (0.2-1.2); Calc. Creatinine Clearance 42 mL/min (70-130); Calcium 8.1 mg/dL (7.8-10.44); Carbon Dioxide 25 mmol/L (22-29); Chloride 108 mmol/L (98-107); Estimated GFR 10; Globulin 2.6 g/dL (2.4-3.5); Glucose 325 mg/dL (70-105); Potassium 4.9 mmol/L (3.5-5.1); Protein, Total 5.9 g/dL (6.0-8.3); Sodium 142 mmol/L (136-145)
[2023-07-28] MEDS: Piperacillin/Tazobactam 3.375 GM in Sodium Chloride 0.9% 100 ML IVPB SCH ×3 (01:43→18:02)
[2023-07-28] MEDS: Propofol 1,000 MG/100 ML VIAL IV PRN ×2 (01:44→11:50)
[2023-07-28 04:41] LABS: #Monocytes 1.2 thou/uL (0.11-0.59); #Neutrophils 9.5 thou/uL (1.40-6.50); %Basophils 0.3 % (0.0-1.0); %Lymphocytes 6.8 % (21.0-51.0); %Monocytes 10.1 % (0.0-10.0); %Neutrophils 81.8 % (42.0-75.0); Mean Corpuscular HGB CONC 31.2 g/dL (32.0-36.0); Mean Corpuscular Hemoglobin 26.3 pg (27.0-31.0); Mean Platelet Volume 12.6 fL (7.4-10.4); Platelet Count 153 10x3/uL (130-400); Red Blood Cell (RBC) Count 4.18 mill/uL (4.70-6.10); White Blood Cell (WBC) Count 11.6 10x3/uL (4.8-10.8)
[2023-07-28 05:22] LABS: Hematocrit 35.3 % (42.0-52.0)
[2023-07-28 05:23] LABS: Mean Corpuscular Volume 84.4 fl (78.0-98.0)
[2023-07-28 06:49] LABS: ALT (SGPT) 107 U/L (8-55); AST (SGOT) 85 U/L (5-34); Albumin 3.2 g/dL (3.5-5.0); Alkaline Phosphatase 96 U/L (40-110); Anion Gap 15 mmol/L (10-20); BUN (Urea Nitrogen) 50 mg/dL (8.9-20.6); Bilirubin, Total 0.6 mg/dL (0.2-1.2); Calc. Creatinine Clearance 42 mL/min (70-130); Carbon Dioxide 24 mmol/L (22-29); Chloride 112 mmol/L (98-107); Estimated GFR 10; Globulin 2.8 g/dL (2.4-3.5); Glucose 68 mg/dL (70-105); Potassium 4.3 mmol/L (3.5-5.1); Sodium 147 mmol/L (136-145)
[2023-07-28] MEDS: Amiodarone 450 MG in Dextrose 5% in Water 250 ML IVPB SCH ×2 (08:20→23:25)
[2023-07-28 09:16] VITALS: BMI 57.2
[2023-07-28] MEDS: levETIRAcetam 500 MG/5 ML VIAL SLOW IVP SCH ×2 (09:22→20:50)
[2023-07-28] MEDS: Pantoprazole 40 MG VIAL IVP SCH (09:25)
[2023-07-28] MEDS: Morphine 2 MG/ML VIAL SLOW IVP PRN (09:26)
[2023-07-28] MEDS ORDERED: FLU VACC QS2023-24(6MOS UP)/PF 60 MCG/0.5 ML SYRINGE IM ONE (10:00)
[2023-07-28] MEDS: hydrALAZINE 20 MG/ML VIAL SLOW IVP PRN (10:15)
[2023-07-28] MEDS ORDERED: niCARdipine 25 MG in Sodium Chloride 0.9% 250 ML 250 ML IVPB SCH (11:00)
[2023-07-28] MEDS: Lorazepam 2 MG/ML VIAL SLOW IVP PRN (11:13)
[2023-07-28] MEDS ORDERED: Fentanyl CADD 100 ML ONE (11:44)
[2023-07-28] MEDS: Fentanyl CADD 100 ML IV SCH (11:47)
[2023-07-28] MEDS ORDERED: Lorazepam 2 MG/ML VIAL SLOW IVP PRN (12:15)
[2023-07-28] MEDS: niCARdipine 50 MG, Admixture Fee 1 EACH in Sodium Chloride 0.9% 250 ML 230 ML IV SCH ×2 (18:02→23:54)
[2023-07-28 20:38] LABS: Vancomycin, Random 15.2 ug/mL (See Comment)
[2023-07-28] MEDS ORDERED: Vancomycin 1 GM in Premix 1 BAG IVPB SCH (21:00)
[2023-07-29] MEDS: Piperacillin/Tazobactam 3.375 GM in Sodium Chloride 0.9% 100 ML IVPB SCH ×3 (01:31→18:11)
[2023-07-29 04:30] LABS: #Monocytes 0.8 thou/uL (0.11-0.59); #Neutrophils 12.5 thou/uL (1.40-6.50); %Basophils 0.3 % (0.0-1.0); %Eosinophils 0.3 % (0.0-10.0); %Lymphocytes 4.5 % (21.0-51.0); %Monocytes 5.9 % (0.0-10.0); %Neutrophils 88.4 % (42.0-75.0); Hematocrit 34.5 % (42.0-52.0); Mean Corpuscular HGB CONC 31.9 g/dL (32.0-36.0); Mean Corpuscular Hemoglobin 26.6 pg (27.0-31.0); Mean Corpuscular Volume 83.5 fl (78.0-98.0); Mean Platelet Volume 13.1 fL (7.4-10.4); Platelet Count 143 10x3/uL (130-400); RBC Distribution Width 15.4 % (11.5-14.5); Red Blood Cell (RBC) Count 4.13 mill/uL (4.70-6.10); White Blood Cell (WBC) Count 14.2 10x3/uL (4.8-10.8)
[2023-07-29 05:01] LABS: ALT (SGPT) 75 U/L (8-55); AST (SGOT) 51 U/L (5-34); Alkaline Phosphatase 82 U/L (40-110); Anion Gap 17 mmol/L (10-20); BUN (Urea Nitrogen) 47 mg/dL (8.9-20.6); Bilirubin, Total 0.7 mg/dL (0.2-1.2); Calc. Creatinine Clearance 41 mL/min (70-130); Calcium 7.8 mg/dL (7.8-10.44); Carbon Dioxide 22 mmol/L (22-29); Chloride 111 mmol/L (98-107); Estimated GFR 10; Glucose 156 mg/dL (70-105); Potassium 3.9 mmol/L (3.5-5.1); Sodium 146 mmol/L (136-145)
[2023-07-29] MEDS: niCARdipine 50 MG, Admixture Fee 1 EACH in Sodium Chloride 0.9% 250 ML 230 ML IV SCH ×3 (05:57→22:59)
[2023-07-29 07:06] LABS: Actual Bicarbonate (HCO3a) 21.7 mEq/L (22-28); Base Excess (BEa) -2.3 mEq/L (-2.0 to +3.0); CO2 Tension 34.8 mmHg (35.0-45.0); Calcium, Ionized (arterial) 1.07 mmol/L (1.12-1.30); Carboxyhemoglobin (COHb) 0.6 gm% (0.0-3.0); Hematocrit-ABG 35 % (42.0-52.0); Hemoglobin (Hb) 11.9 g/dL (14.0-18.0); O2 Tension (PaO2), arterial 96.4 mmHg (80.0-100.0); Potassium - ABG Lab 3.89 mmol/L (3.70-5.30); pH, Arterial 7.413 (7.35-7.45)
[2023-07-29 07:18] LABS: Puncture Site Arterial Line
[2023-07-29] MEDS: levETIRAcetam 500 MG/5 ML VIAL SLOW IVP SCH ×2 (09:32→21:12)
[2023-07-29] MEDS: Pantoprazole 40 MG VIAL IVP SCH (09:32)
[2023-07-29] MEDS: Amiodarone 450 MG in Dextrose 5% in Water 250 ML IVPB SCH (16:49)
[2023-07-29] MEDS: Dextrose 5% in Water 1,000 ML IV SCH (18:12)
[2023-07-29 20:59] LABS: Vancomycin, Random 19.7 ug/mL (See Comment)
[2023-07-29] MEDS ORDERED: Vancomycin HCl 750 MG in Sodium Chloride 0.9% 250 ML 250 ML IVPB SCH (21:15)
[2023-07-29] MEDS: Morphine 2 MG/ML VIAL SLOW IVP PRN (22:01)
[2023-07-30] MEDS: Fentanyl CADD 100 ML IV SCH (01:25)
[2023-07-30] MEDS: Piperacillin/Tazobactam 3.375 GM in Sodium Chloride 0.9% 100 ML IVPB SCH ×3 (02:09→17:57)
[2023-07-30] MEDS: hydrALAZINE 20 MG/ML VIAL SLOW IVP PRN (02:10)
[2023-07-30] MEDS: Rocuronium Bromide 10 MG/ML (10ML VIAL) IVP PRN ×2 (02:21→03:36)
[2023-07-30] MEDS: niCARdipine 50 MG, Admixture Fee 1 EACH in Sodium Chloride 0.9% 250 ML 230 ML IV SCH (04:16)
[2023-07-30] MEDS: Amiodarone 450 MG in Dextrose 5% in Water 250 ML IVPB SCH (04:17)
[2023-07-30] MEDS ORDERED: Rocuronium Bromide 50 MG/5 ML VIAL IVP PRN (04:33)
[2023-07-30 04:52] LABS: #Eosinphils 0.1 thou/uL (0.0-0.7); #Monocytes 0.9 thou/uL (0.11-0.59); #Neutrophils 15.1 thou/uL (1.40-6.50); %Basophils 0.2 % (0.0-1.0); %Eosinophils 0.4 % (0.0-10.0); %Lymphocytes 2.7 % (21.0-51.0); %Monocytes 5.1 % (0.0-10.0); %Neutrophils 90.2 % (42.0-75.0); Hematocrit 35.4 % (42.0-52.0); Hemoglobin 11.2 g/dL (14.0-18.0); Mean Corpuscular HGB CONC 31.6 g/dL (32.0-36.0); Mean Corpuscular Hemoglobin 26.5 pg (27.0-31.0); Mean Corpuscular Volume 83.9 fl (78.0-98.0); Mean Platelet Volume 12.6 fL (7.4-10.4); Platelet Count 143 10x3/uL (130-400); RBC Distribution Width 15.7 % (11.5-14.5); Red Blood Cell (RBC) Count 4.22 mill/uL (4.70-6.10); White Blood Cell (WBC) Count 16.7 10x3/uL (4.8-10.8)
[2023-07-30 05:15] LABS: ALT (SGPT) 61 U/L (8-55); AST (SGOT) 61 U/L (5-34); Albumin 3.1 g/dL (3.5-5.0); Alkaline Phosphatase 93 U/L (40-110); Anion Gap 18 mmol/L (10-20); BUN (Urea Nitrogen) 45 mg/dL (8.9-20.6); Bilirubin, Total 0.6 mg/dL (0.2-1.2); Calc. Creatinine Clearance 42 mL/min (70-130); Calcium 7.9 mg/dL (7.8-10.44); Carbon Dioxide 22 mmol/L (22-29); Chloride 114 mmol/L (98-107); Estimated GFR 10; Globulin 3.3 g/dL (2.4-3.5); Glucose 160 mg/dL (70-105); Protein, Total 6.4 g/dL (6.0-8.3); Sodium 150 mmol/L (136-145)
[2023-07-30] MEDS ORDERED: Albumin 25% 25 GM/100 ML BOT IVPB SCH (06:45)
[2023-07-30 06:47] LABS: Base Excess (BEa) -2.8 mEq/L (-2.0 to +3.0); CO2 Tension 38.3 mmHg (35.0-45.0); Calcium, Ionized (arterial) 1.07 mmol/L (1.12-1.30); Carboxyhemoglobin (COHb) 0.1 gm% (0.0-3.0); Hematocrit-ABG 33 % (42.0-52.0); Hemoglobin (Hb) 11.1 g/dL (14.0-18.0); Potassium - ABG Lab 3.91 mmol/L (3.70-5.30); pH, Arterial 7.378 (7.35-7.45)
[2023-07-30 06:59] LABS: O2 Tension (PaO2), arterial 55.2 mmHg (80.0-100.0)
[2023-07-30 07:00] LABS: Puncture Site Arterial Line
[2023-07-30] MEDS: Dextrose 5% in Water 1,000 ML IV SCH ×3 (07:15→14:04)
[2023-07-30] MEDS: levETIRAcetam 500 MG/5 ML VIAL SLOW IVP SCH ×2 (08:37→21:17)
[2023-07-30] MEDS: Pantoprazole 40 MG VIAL IVP SCH (08:38)
[2023-07-30] MEDS ORDERED: Sodium Chloride 0.9% 1,000 ML IV SCH (10:30)
[2023-07-30] MEDS ORDERED: NOREPINEPHRINE 8 MG/250 ML-D5W 250 ML IVPB SCH (10:30)
[2023-07-30] MEDS ORDERED: Hydrocortisone Sod Succ/PF 100 mg/2 ml Vial IVP SCH (12:15)
[2023-07-30] MEDS ORDERED: Levothyroxine 100 MCG SDV SLOW IVP SCH (13:00)
[2023-07-30] MEDS: Levothyroxine Sodium 400 MCG in Sodium Chloride 0.9% 100 ML IVPB SCH ×2 (13:53→18:21)
[2023-07-30] MEDS: Scopolamine 1 mg/72 hour Patch TD SCH (17:58)
[2023-07-30 20:56] LABS: Vancomycin, Random 18.9 ug/mL (See Comment)
[2023-07-30] MEDS ORDERED: Vancomycin HCl 750 MG in Sodium Chloride 0.9% 250 ML 250 ML IVPB SCH (21:00)
[2023-07-30] MEDS: Hydrocortisone Sod Succ/PF 100 mg/2 ml Vial IVP SCH (21:17)
[2023-07-31] MEDS: Piperacillin/Tazobactam 3.375 GM in Sodium Chloride 0.9% 100 ML IVPB SCH ×2 (02:59→09:33)
[2023-07-31] MEDS: Dextrose 5% in Water 1,000 ML IV SCH ×2 (05:47→15:53)
[2023-07-31] MEDS: Hydrocortisone Sod Succ/PF 100 mg/2 ml Vial IVP SCH ×2 (05:47→15:53)
[2023-07-31 06:12] LABS: #Monocytes 0.7 thou/uL (0.11-0.59); #Neutrophils 9.2 thou/uL (1.40-6.50); %Basophils 0.3 % (0.0-1.0); %Eosinophils 0.2 % (0.0-10.0); %Monocytes 6.4 % (0.0-10.0); %Neutrophils 85.8 % (42.0-75.0); Hematocrit 30.2 % (42.0-52.0); Hemoglobin 9.2 g/dL (14.0-18.0); Mean Corpuscular HGB CONC 30.5 g/dL (32.0-36.0); Mean Corpuscular Hemoglobin 26.6 pg (27.0-31.0); Mean Corpuscular Volume 87.3 fl (78.0-98.0); Mean Platelet Volume 12.6 fL (7.4-10.4); Platelet Count 129 10x3/uL (130-400); RBC Distribution Width 16.2 % (11.5-14.5); Red Blood Cell (RBC) Count 3.46 mill/uL (4.70-6.10); White Blood Cell (WBC) Count 10.7 10x3/uL (4.8-10.8)
[2023-07-31 06:35] LABS: ALT (SGPT) 38 U/L (8-55); AST (SGOT) 18 U/L (5-34); Albumin 2.8 g/dL (3.5-5.0); Alkaline Phosphatase 66 U/L (40-110); Anion Gap 17 mmol/L (10-20); BUN (Urea Nitrogen) 52 mg/dL (8.9-20.6); Bilirubin, Total 0.4 mg/dL (0.2-1.2); Calc. Creatinine Clearance 40 mL/min (70-130); Calcium 7.8 mg/dL (7.8-10.44); Carbon Dioxide 22 mmol/L (22-29); Chloride 115 mmol/L (98-107); Estimated GFR 9; Glucose 102 mg/dL (70-105); Potassium 4.6 mmol/L (3.5-5.1); Protein, Total 5.8 g/dL (6.0-8.3); Sodium 149 mmol/L (136-145)
[2023-07-31 07:17] VITALS: TEMP 97.5
[2023-07-31] MEDS: levETIRAcetam 500 MG/5 ML VIAL SLOW IVP SCH (09:33)
[2023-07-31] MEDS: Pantoprazole 40 MG VIAL IVP SCH (09:33)
[2023-07-31 10:27] VITALS: BP 111/50
== END 2023-07-31 16:05 | disposition expired | DRG 308 ==
LOC: ERS 15:25 → CCU 17:58
PROVIDERS: ADMIT Family Medicine; ATTEND Family Medicine
PROC: 06HY33Z Insertion of Infusion Device into Lower Vein, Percutaneous Approach (ICD-10-PCS; principal; 2023-07-27)
PROC: 03HY32Z Insertion of Monitoring Device into Upper Artery, Percutaneous Approach (ICD-10-PCS; 2023-07-27)
PROC: 4A133B1 Monitoring of Arterial Pressure, Peripheral, Percutaneous Approach (ICD-10-PCS; 2023-07-27)
PROC: 4A133J1 Monitoring of Arterial Pulse, Peripheral, Percutaneous Approach (ICD-10-PCS; 2023-07-27)
PROC: 0DH67UZ Insertion of Feeding Device into Stomach, Via Natural or Artificial Opening (ICD-10-PCS; 2023-07-27)
PROC: 0T9B70Z Drainage of Bladder with Drainage Device, Via Natural or Artificial Opening (ICD-10-PCS; 2023-07-27)
PROC: 03HY32Z Insertion of Monitoring Device into Upper Artery, Percutaneous Approach (ICD-10-PCS; 2023-07-27)
PROC: 4A133B1 Monitoring of Arterial Pressure, Peripheral, Percutaneous Approach (ICD-10-PCS; 2023-07-27)
PROC: 4A133J1 Monitoring of Arterial Pulse, Peripheral, Percutaneous Approach (ICD-10-PCS; 2023-07-27)
PROC: 4A133R1 Monitoring of Arterial Saturation, Peripheral, Percutaneous Approach (ICD-10-PCS; 2023-07-27)
PROC: 0BH17EZ Insertion of Endotracheal Airway into Trachea, Via Natural or Artificial Opening (ICD-10-PCS; 2023-07-27)
PROC: 5A1945Z Respiratory Ventilation, 24-96 Consecutive Hours (ICD-10-PCS; 2023-07-27)
PROC: 5A12012 Performance of Cardiac Output, Single, Manual (ICD-10-PCS; 2023-07-27)
PROC: 5A2204Z Restoration of Cardiac Rhythm, Single (ICD-10-PCS; 2023-07-27)
PROC: 3E033XZ Introduction of Vasopressor into Peripheral Vein, Percutaneous Approach (ICD-10-PCS; 2023-07-27)
PROC: 3E04317 Introduction of Other Thrombolytic into Central Vein, Percutaneous Approach (ICD-10-PCS; 2023-07-27)
PROC: 4A10X4Z Monitoring of Central Nervous Electrical Activity, External Approach (ICD-10-PCS; 2023-07-28)
PROC: 30233J1 Transfusion of Nonautologous Serum Albumin into Peripheral Vein, Percutaneous Approach (ICD-10-PCS; 2023-07-30)
DX: I49.01 Ventricular fibrillation (principal); G93.41 Metabolic encephalopathy; J96.21 Acute and chronic respiratory failure with hypoxia; Z51.5 Encounter for palliative care; I13.0 Hypertensive heart and chronic kidney disease with heart failure and stage 1 through stage 4 chronic kidney disease, or unspecified chronic kidney disease; I50.22 Chronic systolic (congestive) heart failure; N17.9 Acute kidney failure, unspecified; Z68.43 Body mass index [BMI] 50.0-59.9, adult; E87.0 Hyperosmolality and hypernatremia; E87.1 Hypo-osmolality and hyponatremia; N18.5 Chronic kidney disease, stage 5; G93.1 Anoxic brain damage, not elsewhere classified; E87.4 Mixed disorder of acid-base balance; I47.20 Ventricular tachycardia, unspecified; I42.0 Dilated cardiomyopathy; E66.01 Morbid (severe) obesity due to excess calories; G47.33 Obstructive sleep apnea (adult) (pediatric); E11.22 Type 2 diabetes mellitus with diabetic chronic kidney disease; D64.9 Anemia, unspecified; R57.0 Cardiogenic shock; I48.0 Paroxysmal atrial fibrillation; Z82.49 Family history of ischemic heart disease and other diseases of the circulatory system; Z98.890 Other specified postprocedural states; Z88.8 Allergy status to other drugs, medicaments and biological substances; Z87.891 Personal history of nicotine dependence; Z79.899 Other long term (current) drug therapy; Z91.148 Patient's other noncompliance with medication regimen for other reason; Z78.1 Physical restraint status; I07.1 Rheumatic tricuspid insufficiency; I46.8 Cardiac arrest due to other underlying condition; E11.65 Type 2 diabetes mellitus with hyperglycemia; I48.92 Unspecified atrial flutter
CPT/HCPCS: 31500; 36416; 51702; 71045; 78610; 80053; 80202; 80306; 81001; 82805; 83880; 84484; 85025; 87081; 87086; 93005; 93010; 94003; 95816; 95819; 96365; 96366; 96374; 96375; 96376; A9521; C9113; J0171; J0282; J0283; J0360; J1720; J1953; J2060; J2250; J2272; J2543; J2704; J2997; J3010; J3370; J3370-JW; J3475; J3490; J7050; J7070; P9047